=== PATIENT | female | born 1970 | race African-American/Black ===

== ENCOUNTER 2023-06-20 11:13 | Emergency (ER) | payer OTHER, SELFPAY ==
[2023-06-20 11:25] VITALS: BP 152/79; PULSE 76; RESP 18; TEMP 36.4; O2SAT 100; BMI 284.2
--- NOTE | 2023-06-20 11:35 | XR_ITS ---
The [address] [address] Patient Name: DANNY LOVETT MRN: [id number] date: 1970 Sex: F Assigned Patient Location: ER Current Patient Location: ER Accession/Order Number: [id number] Exam Date: 06/20/2023 12:00 Report Date: 06/20/2023 12:18 At the request of: CAMDEN CRABTREE Procedure: XR chest 2V EXAMINATION: XR chest 2V, 06/20/2023 12:00 PM EST HISTORY: sob COMPARISON: None. TECHNIQUE: 2 views of the chest performed. FINDINGS: Medical devices: None. Cardiomediastinal silhouette is within normal limits. Streaky bilateral lower lobe and lingular opacities about the bases, likely atelectasis/scarring. No large pleural effusion, or pneumothorax. No definite acute osseous abnormality. XR/XR chest 2V IMPRESSION: 1. Streaky bilateral lower lobe and lingular opacities about the bases, likely atelectasis/scarring Electronically authenticated by: AMBREEN ARANGO Date: 06/20/2023 12:18
[2023-06-20] MEDS: ONDANSETRON 4 MG RAPDIS TABLET SL (12:00)
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
== END 2023-06-20 13:31 | disposition home or self-care (01) ==
PROVIDERS: Emergency Provider Emergency Medicine
DX: T65.891A Toxic effect of other specified substances, accidental (unintentional), initial encounter (principal); J68.0 Bronchitis and pneumonitis due to chemicals, gases, fumes and vapors
CPT/HCPCS: 71046; 99283

== ENCOUNTER 2023-10-30 14:10 | Outpatient (OUT) | payer OTHER, SELFPAY ==
--- NOTE | 2023-10-30 14:22 | XR_ITS ---
The [address] [address] Patient Name: DANNY LOVETT MRN: [id number] date: 1970 Sex: F Assigned Patient Location: [facility] Current Patient Location: [facility] Accession/Order Number: [id number] Exam Date: 10/30/2023 14:40 Report Date: 10/30/2023 15:13 At the request of: NIKUNJ DURAN Procedure: XR wrist RT min 3V EXAM: XR wrist RT min 3V HISTORY: Right Hand Pain, Right Wrist Pain . Work-related injury. COMPARISON: None. TECHNIQUE: 3 views of the right wrist were obtained. FINDINGS: There is no evidence of an acute fracture or dislocation. Ulnar minus variance present. The joint spaces are intact throughout. No soft tissue abnormality is identified. XR/XR wrist RT min 3V IMPRESSION: No acute fracture or dislocation. The joint spaces are intact. Electronically authenticated by: IVONE JACQUES Date: 10/30/2023 15:13
--- NOTE | 2023-10-30 14:22 | XR_ITS ---
The [address] [address] Patient Name: DANNY LOVETT MRN: [id number] date: 1970 Sex: F Assigned Patient Location: [facility] Current Patient Location: [facility] Accession/Order Number: [id number] Exam Date: 10/30/2023 14:40 Report Date: 10/30/2023 15:16 At the request of: NIKUNJ DURAN Procedure: XR hand RT min 3V EXAM: XR hand RT min 3V HISTORY: Right Hand Pain, Right Wrist Pain COMPARISON: None. TECHNIQUE: 3 views the right hand were obtained. FINDINGS: There is no evidence of an acute fracture or dislocation. Small calcifications are seen associated with the interphalangeal joint of the thumb, the distal interphalangeal joint of the index finger and the distal interphalangeal joint of the fourth digit. The joint spaces are otherwise intact. No abnormality seen in the soft tissues. XR/XR hand RT min 3V IMPRESSION: No acute fracture or dislocation. Small calcifications are seen associated with a few interphalangeal joints, indicating early degenerative change. The joint spaces are otherwise intact. No radiopaque foreign body is identified. Electronically authenticated by: IVONE JACQUES Date: 10/30/2023 15:16
== END 2023-10-30 14:11 | disposition home or self-care (01) ==
LOC: RAD 14:15
PROVIDERS: Visit Provider Nurse Practitioner Family
DX: S69.91XA Unspecified injury of right wrist, hand and finger(s), initial encounter (principal)
CPT/HCPCS: 73110; 73130

== ENCOUNTER 2025-03-15 08:29 | Emergency (ER) | payer OTHER, SELFPAY ==
--- OUTSIDE RECORDS SUMMARY | 2025-03-07 16:30 | XMS_ITS | Encounter Summary ---
Author Organization [facility] Address [address] [id number] Care Team Providers Care Certified Nursing Assistant Name Role Phone Unallocated, Noms Provider Primary Care Provi ac Reason for Visit * ReasonCommentsFollow-upPf/achilles Encounter Details DateTypeDepartmentCare Team (Latest Contact Info)Ktsleiqlspm24/17/2025 4:30 PM ESTOffice Visit [facility] [address] [place] [phone] Jareth Salazar DPM [address] [phone] Left Achilles tendinitis (Primary Dx); Plantar fasciitis; Contracture of left ankle; Contracture of right ankle Social History Tobacco UseTypesPacks/DayYears UsedDateSmoking Tobacco: Every DayCigarettes Tobacco Cessation:Ready to Q uit: Not Asked; Counseling Given: Yes CommentsUnknownSex and Gender InformationValueDate RecordedSex Assigned at BirthNot on fileLegal IlaEfbfdb62/11/2024 10:43 AM ESTGender IdentityNot on fileSexual OrientationNot on filedocumented as of this encounter Last Filed Vital Signs Vital SignReadingTime TakenCommentsBlood Pressure--Pulse--Temperature-- Respiratory Jhbf941005/07/2024 4:29 PM ESTOxygen Saturation--Inhaled Oxygen Concentration--Fficnp92.5 kg (162 lb)03/07/2025 4:29 PM GKGOtzdhl701.4 cm (5') 03/07/2025 4:29 PM ESTBody Mass Index31.6403/07/2025 4:29 PM ESTdocumented in this encounter Progress Notes * Jareth Salazar DPM - 03/07/2025 4:30 PM EST Patient: Zoraida Owens : 1970 PCP: Noms Provider MD Thony SUBJECTIVE Pt presents today for follow up of left HSS. Pt has had previous treatment of 1st steroid injection, nsaids, stretching with relief in the past. Pt states current pain on a 1-10 scale is a 3 Pt presents to day for follow up tx. Patient has similar complaints to the right heel and rates it up to a 3 /10 Pt presents today for follow up of left achilles tendonitis . Pt has had previous treatment of medrol pack with positive improvement in the past. Pt states current pain on a 1-10 scale is a 1 Pt presents to day for follow up tx. Pt has been taking nsaids and using orthotics with positive improvement. Allergies: Allergies Allergen Reactions Ibuprofen GI intolerance Past Medical History: No past medical history on file. Medications: Current Outpatient Medications: methylPREDNISolone (Medrol Dospak) 4 MG tablets, Follow schedule on MEDROL PACK package instructions to be used as directed, Disp: 21 tablet, Rfl: 0 Social History: Social History Socioeconomic History Marital status: Unmarried Spouse name: Not on file Number of children: Not on file Years of education: Not on file Highest education level: Not on file Occupational History Not on file Tobacco Use Smoking status: Every Day Types: Cigarettes Smokeless tobacco: Not on file Substance and Sexual Activity Alcohol use: Not on file Drug use: Not on file Sexual activity: Not on file Other Topics Concern Not on file Social History Narrative Not on file Social Drivers of Health Financial Resource Strain: Not on file Food Insecurity: Not on file Transportation Needs: Not on file Physical Activity: Not on file Stress: Not on file Social Connections: Not on file Intimate Partner Violence: Not on file Housing Stability: Not on file ROS: Gastrointestinal: denies abdominal pain, ulcers, or changes in appetite or bowel habits Musculoskeletal: Positive generalized arthritis to joints and denies loss of strength. Cardiovascular: denies CP, palpitations, irregular rhythms OBJECTIVE LE EXAM: DERM: Positive hair growth to b/l feet with good skin turgor noted. Negative openings in skin VASC: Palpable pedal pulsed b/l with warm to cool tibia to toes b/l NEURO: Gross sensation intact digits 1-10 and b/l feet ORTHO: 20 degrees inversion and 10 degrees eversion STJ b/l. Ankle ROM less than 10 degrees b/l. minimal pain on palpation to left medial calcaneal tubercle diminished pain on palpation to right medial calcaneal tubercle minimal pain on palpation left Achilles tendon with negative palpable [place] XRAY: ASSESSMENT 1. Left Achilles tendinitis 2. Plantar fasciitis 3. Contracture of left ankle 4. Contracture of right ankle PLAN Prescription today for Mobic Patient is to continue with stretching excercizes daily with patient to continue with night stretching splint or manual stretching. Continue with orthotics Jareth Salazar DPM documented in this encounter Plan of Treatment DateTypeDepartmentCare Team (Latest Contact Info)Ylgjkoglhdl41/08/2025 4:30 PM ESTOffice Visit [facility] [address] [place] [phone] Jareth Salazar DPM [address] [address] documented as of this encounter Visit Diagnoses Diagnosis Left Achilles tendinitis- Primary Plantar fasciitis Plantar fascial fibromatosis Contracture of left ankle Contracture of right ankle documented in this encounter Care Teams Team MemberRelationshipSpecialtyStart DateEnd Date Unallocated, [facility] MD Dg [address] [place] [address] PCP - GeneralFamily Medicine05/01/23documented as of this encounter
[2025-03-15] VITALS (12 sets, daily range): BP systolic 127–158; BP diastolic 79–104; PULSE 48–56; TEMP 36.6; O2SAT 99–100; BMI 32.0
--- NOTE | 2025-03-15 08:52 | ECG_ITS ---
The [facility] Test Date: 2025-03-15 Pat Name: DANNY LOVETT Department: Room: - Gender: Female [employer]ite [employer]: : 1970 Requested By: Order Number: [id number] Reading MD: NURA ULLOA Measurements Intervals [place] Rate: 52 P: 76 RI: 126 QRS: 77 QRSD: 76 T: 49 QT: 426 QTc: 407 Interpretive Statements 1100 Sinus rhythm 4068 Nonspecific [place] abnormality 9130 borderline ECG No previous ECG available for comparison Electronically Signed On 03-15-2025 15:19:50 EST by NURA ULLOA
--- NOTE | 2025-03-15 08:53 | XR_ITS ---
The [address] [id number] Patient Name: DANNY LOVETT MRN: [id number] date: 1970 Sex: F Assigned Patient Location: ED.MAIN Current Patient Location: ED.MAIN Accession/Order Number: [id number] Exam Date: 03/15/2025 09:10 Report Date: 03/15/2025 09:26 At the request of: SABRINA ESPINOZA MD Procedure: XR chest 1V PORTABLE AP ERECT CHEST 0855 hours CLINICAL HISTORY: Chest pain and dizziness. History of tobacco use. COMPARISON: 06/20/2023 The heart is within normal limits. There is no vascular congestion. The lungs, as visualized, are clear. There is no effusion or pneumothorax. The osseous structures are intact. XR/XR chest 1V IMPRESSION: NO ACUTE FINDINGS Impression dictated by: Lizet Clark M.D. 03/15/2025 9:26 AM Dictation Location: [place] [address] Electronically authenticated by: [id number] Y Date: 03/15/2025 09:26
--- NOTE | 2025-03-15 08:53 | ED.GENADUL1 ---
HPI HPI - General Adult General Chief complaint: Chest Pain Stated complaint: CHEST PAIN Time Seen by Provider: 03/15/25 08:32 Source: patient Mode of arrival: ambulance Limitations: no limitations History of Present Illness HPI narrative: 54-year-old female presented to the emergency department for chest pain. It began about 6:15 this morning and is sharp and intermittent. Sometimes she feels dizzy. It started coming on more frequently and she came here to get checked. No trauma or fever or back pain. She does not complain to me of shortness of breath. No history of coronary artery disease. Related Data Previous Rx's ?Medication ?Instructions ?Recorded albuterol sulfate 90 mcg/actuation 2 inh inhalation Q6H PRN 06/20/23 aerosol inhaler bronchospasm #8.5 grams Allergies Allergy/AdvReac Type Severity Reaction Status Date / Time ibuprofen (From Motrin) Allergy Abdominal Verified 03/15/25 08:42 Pain Opioid HPI Opioid Management Most Recent Opioid Data: Last Pain Scale 3 Today, 08:36 Review of Systems ROS Narrative A ten point review of systems is negative except as noted above. PFSH PFSH Social History Smoking status: Current every day smoker Little interest or pleasure in doing things: not at all Feeling down, depressed, or hopeless: not at all Exam Narrative Exam Narrative: Nurses note and vital signs reviewed General:The patient appears well and in no apparent distress.Patient is resting comfortably on cart. Skin:Warm, dry, no pallor noted.There is no rash noted. Head:Normocephalic, atraumatic Eye: Normal conjunctiva, no drainage Ears, Nose, Mouth, and Throat: oral mucosa is moist. Nares patent. Cardiovascular:Regular Rate and Rhythm Respiratory:Patient is in no distress, no accessory muscle use, lungs are clear to auscultation, no wheezing, rales or rhonchi Back:non-tender GI:Normal bowel sounds, no tenderness to palpation, no masses appreciated.No rebound, guarding, or rigidity noted. Musculoskeletal: The patient has no evidence of calf tenderness, no pitting edema, symmetrical pulses noted bilaterally Neurological:A&O, normal speech Psychiatric:Cooperative Constitutional Vital Signs, click to edit/add: Last Vital Signs Temp 97.8 F 03/15/25 08:36 Pulse 52 L 03/15/25 10:00 Resp 16 03/15/25 10:00 BP 127/79 03/15/25 10:00 Pulse Ox 100 03/15/25 10:00 Course Vital Signs Vital signs: Vital Signs Temperature 97.8 F 03/15/25 08:36 Pulse Rate 53 L 03/15/25 08:36 Respiratory Rate 16 03/15/25 08:36 Blood Pressure 150/104 H 03/15/25 08:36 Pulse Oximetry 100 03/15/25 08:36 Temperature 97.8 F 03/15/25 08:36 Pulse Rate 52 L 03/15/25 10:00 Respiratory Rate 16 03/15/25 10:00 Blood Pressure 127/79 03/15/25 10:00 Pulse Oximetry 100 03/15/25 10:00 Medical Decision Making MDM Narrative Medical decision making narrative: Her workup including 2 sets of troponin is negative. She is able to be discharged home. She reports she has been under a lot of stress recently. She will follow-up with her doctor if symptoms persist. No evidence of acute coronary syndrome. Have no clinical suspicion of PE at this point. Treatment diagnosis and follow-up were discussed with the patient. Differential Diagnosis Differential Diagnosis: Myocardial infarction, anxiety, PE, pneumothorax, GERD Lab Data Lab results reviewed: Yes I reviewed the patient's lab results Labs: Lab Results 03/15/25 03/15/25 Range/Units 08:50 09:57 WBC 5.8 (4.0-11.0) 10^3/uL RBC 4.33 (4.20-5.40) 10^6/uL Hgb 13.6 (12.0-16.0) g/dL Hct 40.7 (36.0-48.0) % MCV 94.0 (81.0-99.0) fL MCH 31.4 (26.7-34.0) pg MCHC 33.4 (29.9-35.2) g/dL RDW 12.3 (11.0-15.0) % Plt Count 195 (150-450) 10^3/uL MPV 10.7 (9.5-13.5) fL Neut % (Auto) 60.6 (43.0-75.0) % Lymph % (Auto) 29.7 (20.5-60.0) % [place] % (Auto) 5.7 (1.7-12.0) % Eos % (Auto) 3.1 (0.9-7.0) % Baso % (Auto) 0.7 (0.2-2.0) % Neut # (Auto) 3.5 (1.4-6.5) 10^3/uL Lymph # (Auto) 1.7 (1.2-3.8) 10^3/uL [place] # (Auto) 0.3 (0.3-0.8) 10^3/uL Eos # (Auto) 0.2 (0.0-0.7) 10^3/uL Baso # (Auto) 0.0 (0.0-0.1) 10^3/uL Abs Immat Gran (auto) 0.01 (0.00-0.03) 10^3/uL Imm/Tot Granulo (auto) 0.2 (0.0-0.5) % D-Dimer 0.55 (<=0.59) mg/L FEU Sodium 144 (136-145) mmol/L Potassium 3.9 (3.5-5.1) mmol/L Chloride 108 H (98-107) mmol/L Carbon Dioxide 28.5 (21.0-32.0) mmol/L Anion Gap 11.4 BUN 15.0 (7.0-18.0) mg/dL Creatinine 0.89 (0.55-1.02) mg/dL Est GFR ( Amer) >60 (>=60 mL/min/1.73m^2) Est GFR (Non-Af Amer) >60 (>=60 mL/min/1.73m^2) BUN/Creatinine Ratio 16.9 Glucose 93 (74-106) mg/dL Calcium 8.8 (8.5-10.1) mg/dL Troponin I High Sens 15.4 15.1 (4.0-51.3) pg/mL Imaging Data Chest x-ray: Radiologist's impression: ITS Impressions Chest X-Ray 03/15/25 08:53 IMPRESSION: NO ACUTE FINDINGS Impression dictated by: Lizet Clark M.D. 03/15/2025 9:26 AM Dictation Location: [place] [address] Electronically authenticated by: [id number] Y Date: 03/15/2025 09:26 ECG Data Attestation: I personally reviewed and interpreted this ECG as follows: (EKG on my interpretation shows sinus rhythm with rate 52 and no acute changes.) Discharge Plan Discharge Chief Complaint: Chest Pain Clinical Impression: Chest pain Patient Disposition: Home, Self-Care Time of Disposition Decision: 10:32 Condition: Good Mode of Transportation: Private Vehicle Prescriptions / Home Meds: No Action albuterol sulfate 90 mcg/actuation HFA aerosol inhaler 2 inh inhalation Q6H PRN (Reason: bronchospasm) Qty: 8.5 0RF Print Language: Burmese Instructions: Chest Pain (ED) Referrals: Physician,Non-Staff, MD [Primary Care Provider] - 1 week
[2025-03-15 09:03] LABS: Hematocrit 40.7 % (36.0-48.0); Hemoglobin 13.6 g/dL (12.0-16.0); Immature Granulocytes Abs Auto 0.01 10^3/uL (0.00-0.03); Immature Granulocytes Pct Auto 0.2 % (0.0-0.5); Lymphocytes Absolute Auto 1.7 10^3/uL (1.2-3.8); Mean Corpuscular HGB Conc 33.4 g/dL (29.9-35.2); Mean Corpuscular Hemoglobin 31.4 pg (26.7-34.0); Mean Corpuscular Volume 94.0 fL (81.0-99.0); Platelet Count 195 10^3/uL (150-450); Red Blood Count 4.33 10^6/uL (4.20-5.40); White Blood Count 5.8 10^3/uL (4.0-11.0)
--- OUTSIDE RECORDS SUMMARY | 2025-03-15 09:12 | XMS_ITS | Clinical Summary ---
Author Organization [facility] Address [address] [id number] Care Team Providers Care Priming Mixture Carrier Name Role Phone Unallocated, [facility] Provi ac Allergies Active AllergyReactionsCriticalityNoted DateCommentsIbuprofenGI intolerance 01/10/2025 Medications MedicationSigDispense QuantityRefillsLast FilledStart DateEnd DateStatus methylPREDNISolone (Medrol Dospak) 4 MG tablets Indications:Left Achilles tendinitisFollow schedule on MEDROL PACK package instructions to be used as directed 21 tablet 5Active meloxicam (Mobic) 15 MG tablet Indications:Plantar fasciitisTake 1 tablet (15 mg) by mouth Daily 30 tablet 5Active Active Problems No known active problems Encounters DateTypeDepartmentCare IxslKiidjizupwf04/17/2025 4:30 PM ESTOffice Visit [facility] [address] [place] [phone] Jareth Salazar DPM Left Achilles tendinitis (Primary Dx); Plantar fasciitis; Contracture of left ankle; Contracture of right ankle03/07/2025amboo flowsheet [facility] [address] [place] [phone] Jareth Salazar DPM 02/11/2025 9:30 AM EDTOffice Visit [facility] [address] [place] [phone] Jareth Salazar DPM Left Achilles tendinitis (Primary Dx); Plantar fasciitis; Contracture of left ankle; Contracture of right ankle02/11/2025bstract [facility] [address] [place] [address] Jareth Salazar DPM 02/11/2025amboo flowsheet [facility] [address] [place] [phone] Jareth Salazar DPM 02/04/2025Telephone [facility] [address] [place] [phone] Jareth Salazar DPM 01/24/2025 11:10 AM EDTClinical Support [facility] [address] [place] [phone] Jareth Salazar DPM Left Achilles tendinitis (Primary Dx); Plantar fasciitis; Contracture of left ankle; Contracture of right ankle01/24/2025amboo flowsheet [facility] [address] [place] [phone] Jareth Salazar DPM 01/10/2025 4:00 PM EDTOffice Visit [facility] [address] [place] [phone] Jareth Salazar DPM Left Achilles tendinitis (Primary Dx); Heel spur, left; Plantar fasciitis; Contracture of left ankle; Contracture of right ankle01/10/2025amb flowsheet [facility] [address] [place] [phone] Jareth Salazar DPM from Last 3 Months Family History RelationNameStatusCommentsFatherDeceasedMotherAlive Social History Tobacco UseTypesPacks/DayYears UsedDateSmoking Tobacco: Every DayCigarettes Tobacco Cessation:Ready to Q uit: Not Asked; Counseling Given: Yes CommentsUnknownSex and Gender InformationValueDate RecordedSex Assigned at BirthNot on fileLegal CxfDmypdp84/11/2024 10:43 AM ESTGender IdentityNot on fileSexual OrientationNot on file Last Filed Vital Signs Vital SignReadingTime TakenCommentsBlood Pressure--Pulse--Temperature-- Respiratory Xspj188605/07/2024 4:29 PM ESTOxygen Saturation--Inhaled Oxygen Concentration--Jscqig94.5 kg (162 lb)03/07/2025 4:29 PM DKOGgjwoq931.4 cm (5') 03/07/2025 4:29 PM ESTBody Mass Index31.6403/07/2025 4:29 PM EST Plan of Treatment DateTypeDepartmentCare Team (Latest Contact Info)Rfgvngggwmg28/08/2025 4:30 PM ESTOffice Visit [facility] [address] [place] [phone] Jareth Salazar DPM [address] [address] Health MaintenanceDue DateLast DoneCommentsCT Jhkumywhtldo64/23/1972Colonoscopy 1971Colorectal Cancer Nldumesby08/23/1972FIT-DNA1971FIT1971 FOBT1971 6524Sccxjpbklvmsz87/23/1972Pneumococcal Vaccine: Pediatrics (0 to 5 Years) and At-Risk Patients (6 to 64 Years) (1 of 2 - PCV)12/11/1990Pap Smear 12/11/1992Cervical Cancer Rmtublkqm62/23/2002HPV/Znxdbr5412/11/2001Mammogram 2011COVID-19 Vaccine ( - 2024- season)2024Influenza Vaccine (#1) 2024 Insurance Care Teams Team MemberRelationshipSpecialtyStart DateEnd Date Unallocated, [facility], [address] [place] [address] PCP - GeneralFamily Medicine05/01/23
--- OUTSIDE RECORDS SUMMARY | 2025-03-15 09:12 | XMS_ITS | CCD ---
Author Organization [facility] Care Team Providers Care Outdoor Adventure Instructor Name Role Phone [facility], Services Primary Care Provider [phone]( [phone] DO Lucio Truong Emergency Provider [phone] DO Juni Bell Emergency Provider Family [facility], Services Primary Care Provider MD Jackson Alexandre Emergency Provider Naveed [facility] Lolis Brewster Emergency Provider [facility], Services Primary Care Provider MD Jackson Alexandre Emergency Provider MD Quentin Dickinson Emergency Provider [facility], Services Primary Care Provider DO Aurelio Jimenez Emergency Provider UnaCELESTE [place] Emergency Provider [facility], Services Primary Care Provider MD Felipe Gray Attending Provider [facility] Primary Care Provider Charles Thorne PA-C Emergency Provider [facility], Services Primary Care Unavaila Felipe Ruff Attending Unavailable Felipe Gray Admitting Unavailable Quentin Dickinson Attending Unavailable Quentin Dickinson Admitting Unavailable [facility] Primary Care Unavaila ble [facility] Primary Care Unavaila Charles Sampson Attending Unavailable Charles Thorne Admitting Unavailable [facility] Primary Care Unavaila Sandra Mello Attending Unavailable Sandra Nina Admitting Unavailable [facility] Services Primary Care Unavaila ble Aurelio Jimenez Attending Unavailable Aureilo Jimenez Admitting Unavailable Unallocated , [place] Provider Primary Care Provi ac JARETH SALAZAR Attending Unavailable JARETH SALAZAR Attending Unavailable JARETH SALAZAR Attending Unavailable Allergies Allergy ClassificationReported Allergen(s)Allergy TypeDate of OnsetReaction(s) Facility (11 sources)Ibuprofen; Translations: [ibuprofen]Drug Trzoctv20-63-0008WZ [facility] Medications Current Medications MedicationDrug Class(es)DatesSig (Normalized)Sig (Original)lidocaine 0.05 mg/mg medicated patch (10 sources)Antiarrhythmic, Amide Local AnestheticStart: 05-47-5195zblij 1 dose topically every twenty-four hoursLidocaine 5 % adhesive patch,medicated Active 1 PATCH TOPICAL Q24H July 13, 2024 12:00am leave on most painful area for up to 12 hrsStart: 03-21-2020 End: 46-72-4613iwmgd 1 dose topically once dailyLidocaine 5 % adhesive patch,medicated Discontinued 1 PATCH TOPICAL Daily March 21, 2020 1:00am May 22, 2020 6:52pm leave on most painful area for up to 12 hrs methocarbamol 750 mg oral tablet (1 source)Muscle RelaxantStart: 80-38-6487mjml 1 tablet by mouth three times dailyMethocarbamol 750 mg tablet Active 750 MG PO Three times daily July 13, 2024 12:00ammethylPREDNISolone (7 sources)CorticosteroidStart: 09-25-0973dnziodMDGGSVCfweok (Medrol Dospak) 4 MG tablets Indications: Left Achilles tendinitis Follow schedule on MEDROL PACK package instructions to be used as directed 21 tablet 01/10/2025 Activenaproxen 500 mg oral tablet (20 sources)Nonsteroidal Anti-inflammatory DrugStart: 48-96-1678ekzv 1 tablet by mouth twice daily as needed for painNaproxen (Naprosyn) 500 mg tablet Active 500 MG PO Twice daily as needed for pain July 13, 2024 12:00amStart: 05-04-2017 End: 97-02-2938ifou 1 tablet by mouth twice daily as needed for painNaproxen (Naprosyn) 500 mg tablet Discontinued 500 MG PO Twice daily as needed for pain May 04, 2017 1:00am April 06, 2018 3:40pm administer with food or milkStart: 01-28-2017 End: 56-84-0470Gywqiuar Sodium 550 mg Tablet Discontinued 550 MG PO EVERY 8-12 HOURS as needed for Pain January 28, 2017 12:00am May 04, 2017 12:59pmNo Name (No Known Home Meds) (1 source)Start: 96-03-5108Hx Name (No Known Home Meds) Active September 12, 2023 12:00amondansetron 4 mg disintegrating oral tablet (20 sources)Serotonin-3 Receptor AntagonistStart: 49-95-9174Zgskxlhvisb 4 mg tablet,disintegrating Active 4 MG PO every 6 to 8 hours as needed for Nausea September 12, 2023 12:00amStart: 06-17-2021 End: 87-07-4546yafg 1 tablet by mouth twice daily as needed for nausea and vomitingOndansetron Hcl 4 mg tablet Discontinued 4 MG PO Twice daily as needed for nausea and vomiting 8 June 17, 2021 1:00am February 02, 2023 4:36pm Start: 07-23-2017 End: 49-87-7150pkzu 1 tablet by mouth every four hours for nauseaOndansetron (Zofran Odt) 4 mg Tablet,Disintegrating Discontinued 4 MG PO Q4H as needed for Nausea July 23, 2017 12:00am April 06, 2018 3:40pm administer first dose 30 minutes before start of emetogenic chemotherapy Completed/Discontinued Medications MedicationDrug Class(es)DatesSig (Normalized)Sig (Original)amoxicillin 500 mg oral tablet (9 sources)Penicillin-class AntibacterialStart: 07-28-2022 End: 34-74-0008nimb 1 tablet by mouth three times dailyAmoxicillin 500 mg tablet Discontinued 500 MG PO Three times daily July 28, 2022 12:00am February 02, 2023 4:36pmazithromycin 250 mg oral tablet (9 sources)Macrolide AntimicrobialStart: 04-27-2020 End: 17-04-3941zqgo 2-5 tablets by mouth once dailyAzithromycin (Zithromax Z- Sharif) 250 mg Tablet Discontinued 1 dose pk PO as directed on dose pack April 27, 2020 1:00am May 22, 2020 6:52pm take 500 mg today (day 1), then 250 mg for 4 days (days 2-5)clindamycin 300 mg oral capsule (9 sources)Lincosamide AntibacterialStart: 01-28-2017 End: 34-86-3896iwsf 1 capsule by mouth every eight hoursClindamycin Hcl 300 mg capsule Discontinued 300 MG PO Q8H 30 January 28, 2017 12:00am January 192016 12:00am February 07, 2017 12:03amcyclobenzaprine hydrochloride 10 mg oral tablet (9 sources)Muscle RelaxantStart: 05-04-2017 End: 77-86-1789rfpr 1 tablet by mouth every eight hours as needed for muscle spasmsCyclobenzaprine 10 mg tablet Discontinued 10 MG PO Q8H as needed for muscle spasm May 04, 2017 3:11pm July 23, 2017 10:21amdexamethasone 6 mg oral tablet (9 sources)CorticosteroidStart: 04-27-2020 End: 22-29-2135gxvs 1 tablet by mouth once dailyDexamethasone (Decadron) 6 mg tablet Discontinued 6 MG PO Daily April 27, 2020 1:00am 2020 6:52pmdextromethorphan hydrobromide 15 mg / guaiFENesin 400 mg / pseudoephedrine hydrochloride 60 mg oraltablet (16 sources)alpha-Adrenergic Agonist, Uncompetitive O-zylbag-B-aspartate Receptor Antagonist, Sigma-1 AgonistStart: 03-17-2023 End: 00-58-3571eouh 1 tablet by mouth every six hours as needed Suhgrkurzltthst-Kl-Rfhksbjklxx (Capmist Dm) 60-15-400 mg tablet Discontinued 1 TAB PO Q6H as neededfor cold symptoms March 17, 2023 1:00am September 12, 2023 7:22amStart: 07-19-2019 End: 91-73-1732qfkd 1 tablet by mouth every six hours as needed Wlephxbrmjfmecw-Pt-Wivbgjiokie (Capmist Dm) 60-15-400 mg tablet Discontinued 1 TAB PO Q6H as neededfor cold symptoms 03 23July 19, 2019 12:00am March 21, 2020 8:58pmdoxycycline hyclate 100 mg oral capsule (5 sources)Tetracycline-class DrugStart: 10-09-2023 End: 06-95-7725juff 1 capsule by mouth twice dailyDoxycycline Hyclate 100 mg capsule Discontinued 100 MG PO Twice daily 01 11October 09, 2023 12:00am December 15, 2023 11:51ammeclizine hydrochloride 25 mg oral tablet (9 sources)AntiemeticStart: 06-17-2021 End: 90-02-6473sfip 1 tablet by mouth three times daily as neededMeclizine 25 mg tablet Discontinued 25 MG PO Three times daily as needed for Vertigo June 17, 2021 1:00am February 02, 2023 4:36pmoseltamivir 75 mg oral capsule (7 sources)Neuraminidase InhibitorStart: 03-17-2023 End: 50-22-8359doaa 1 capsule by mouth twice dailyOseltamivir (Tamiflu) 75 mg capsule Discontinued 75 MG PO Twice daily 10 March 17, 2023 1:00am September 12, 2023 7:22ampenicillin v potassium 500 mg oral tablet (9 sources)Start: 01-28-2017 End: 21-96-2697jvmm 1 tablet by mouth twice dailyPenicillin V Potassium 500 mg Tablet Discontinued 500 MG PO Twice daily January 28, 2017 12:00am May 04, 2017 12:58pmtraMADol hydrochloride 50 mg oral tablet (9 sources)Opioid AgonistStart: 01-28-2017 End: 43-50-9227tuca 1 tablet by mouth every six hours as needed for painTramadol 50 mg tablet Discontinued 50 MG PO Q6H as needed for pain January 28, 2017 12:00am May 04, 2017 12:58pmvitamin b12 1 mg/ml injectable solution (9 sources)Vitamin W35Neslm: 01-28-2017 End: 35-99-5328kyshii 1 mL by intramuscular injection every monthCyanocobalamin (Vitamin B-12) 1,000 mcg/mL solution Discontinued 1 ML IM every month January 28, 2017 12:00am February 02, 2023 4:36pm patient reports has no taking in a while Problems Active Problems Problem ClassificationProblemDateDocumented DateEpisodic/ChronicAbdominal pain (6 sources)Abdominal pain; Translations: [Unspecified abdominal pain]09-12-2023 EpisodicConditions associated with dizziness or vertigo (9 sources)Dizziness; Translations: [Dizziness and giddiness]60-03-8734Clxggiue Disorders of teeth and jaw (9 sources)Dental abscess; Translations: [Periapical abscess without sinus] 16-27-0702NytxorsfGhwxu and electrolyte disorders (9 sources)Dehydration; Translations: [Dehydration]00-85-2281HgfeabsiUcgurxfg; including migraine (9 sources)Tension-type headache; Translations: [Tension-type headache, unspecified, not intractable]90-13-6450XdsjivfMmjkrwcm; including migraine (6 sources)Headache; Translations: [Headache]75-91-4254IopkwsmcKkwqdiqk; including migraine (1 source)Headache; including migraine; Translations: [Headache, unspecified] Onset: 80-62-1791Lqtxedahn (7 sources)Influenza due to Influenza A virus; Translations: [Influenza due to other identified influenza virus with other respiratory manifestations] 54-86-5206OauwufmvBtyqcy and vomiting (6 sources)Nausea and vomiting; Translations: [Nausea with vomiting, unspecified]93-74-6616XkgglvqlStmprquoqbl chest pain (16 sources)Atypical chest pain; Translations: [Other chest pain]04-03-2020 EpisodicOther acquired deformities (5 sources)Contracture of joint of left ankle; Translations: [Contracture, left ankle]07-69-7676ZhsmvteDuvyq acquired deformities (5 sources)Contracture of joint of right ankle; Translations: [Contracture, right ankle]61-79-0136FpthxvjWjjli circulatory disease (8 sources)Feeling of lump in throat; Translations: [Other specified symptoms and signs involving the circulatory and respiratory systems]99-79-6484Xcjuqgja Other connective tissue disease (9 sources)Pain in lower limb; Translations: [Pain in leg, unspecified] 44-57-9692PiwylglkVaqql connective tissue disease (5 sources)Left achilles tendonitis; Translations: [Achilles tendinitis, left leg]88-30-4246HnxehxfzXmckh connective tissue disease (2 sources)Calcaneal spur of left foot; Translations: [Calcaneal spur, left foot]89-33-0991BdakyuvpIujgj connective tissue disease (5 sources)Plantar fasciitis; Translations: [Plantar fascial fibromatosis] 67-44-7949LkctamhwTtrat female genital disorders (5 sources)Vaginal discharge; Translations: [Other specified noninflammatory disorders of vagina]50-25-5744VceslxftQoyji female genital disorders (1 source)Vaginal discomfort; Translations: [Unspecified condition associated with female genital organs and menstrual cycle]54-59-4980WkenpmafEfhhf injuries and conditions due to external causes (4 sources)Abrasion and/or friction burn of multiple sites; Translations: [Unspecified multiple injuries, initial encounter]50-45-0732JkmyihbkRolaa injuries and conditions due to external causes (3 sources)Injury of left ankle; Translations: [Unspecified injury of left ankle, initial encounter]58-73-6465BlmosfbdTworg lower respiratory disease (9 sources)Cough; Translations: [Cough]44-78-4852ZilgdbqsOffbu upper respiratory infections (9 sources)Upper respiratory infection; Translations: [Acute upper respiratory infection, unspecified]43-21-7024GurtomvpFpfqfl media and related conditions (9 sources)Otitis media; Translations: [Otitis media, unspecified, unspecified ear]00-81-6535BsarvlxiVoorehcbr by nonmedicinal substances (6 sources)Toxic effect of unspecified gases, fumes and vapors, accidental (unintentional), initial encounter;Translations: [Inhalation of gaseous substance]27-79-4341GjrgekxgTgubcaorano; intervertebral disc disorders; other back problems (9 sources)Sciatica; Translations: [Sciatica, unspecified side]03-21-2020 EpisodicSprains and strains (20 sources)Low back strain; Translations: [Strain of muscle, fascia and tendon of lower back, initial encounter]Onset: 114965-53-6141PweuowccOloniohvjrk injury; contusion (4 sources)Contusion of left lower leg, initial encounter; Translations: [Contusion of left lower extremity]54-46-9267LmdeihweLuzkj infection (18 sources)Disease caused by 2019-nCoV; Translations: [COVID-19]04-27-2020 Episodic Past or Other Problems Problem ClassificationProblemDateDocumented DateEpisodic/ChronicOther connective tissue disease (1 source)Pain in left lower leg; Translations: [Pain in left lower leg]Onset: 60-85-3223TwhwexkpFqpab female genital disorders (1 source)Other specified noninflammatory disorders of vagina; Translations: [Other specified noninflammatorydisorders of vagina]Onset: 73-18-5012Eryhvwjt Other injuries and conditions due to external causes (1 source)Unspecified injury of left ankle, initial encounter; Translations: [Unspecified injury of left ankle, initial encounter]Onset: 69-13-0283Pjzikcav Results Test NameValueInterpretationReference RangeFacilityChlamydia/GC Amplificationon 46-92-2745Pqgljeoqe Trachomotis, NAANegativeNormalNegativeThe [facility] Physician GroupComment on above:Order Comment: SOURCE OF SPECIMEN: cervical Performed By: #### GCCHLAMAMP #### [facility] ,Neisseria Gonorrhoeae, NAANegativeNormalNegativeThe [facility] Comment on above:Order Comment: SOURCE OF SPECIMEN: cervicalResult Comment: Performed at: =[facility] [id number] Plasterer Spray Gun: Brandi Thompson MD, Phone: [phone] PERFORMED BY: [address] [place] [address] PATHOLOGIST RANCH COOK CHRISTOPHER CONNER M.D.Performed By: #### GCCHLAMAMP #### [facility] ,Fungal Smearon 30-60-8251Yqyltm SmearFungus Smear Results No Yeast Like Elements Seen No Fungal Like Elements Seen Trichomonas Screen No Trichomonas Seen Trich Reference Reference range = None Seen PERFORMED BY: [address] [address] PATHOLOGIST RANCH COOK CHRISTOPHER CONNER M.D.[facility] Physician GroupComment on above: Performed By: #### FS, CUGEN ####[facility] [address] [place] [id number] USAFungal smearOrdered By: Charles Thorne on 07-13-2024 Fungus identified Fungus stain Nom (Unsp spec)Fungal smearMemorial Health System Selby General HospitalGenital Cultureon 46-36-9688Ojrdwps CultureNo More GC Specimen not tested for Neisseria gonorrheae ORGANISM: Strep agalactiae - (group b) (O:STRAGA) Quantity of Growth Heavy Growth PERFORMED BY: [facility] [address] [place] [address] PATHOLOGIST RANCH COOK CHRISTOPHER CONNER M.D.[facility] Physician GroupComment on above: Performed By: #### FS, CUGEN ####[facility] [address] [place] [address] USATrichomonas vaginalis detection by wet preparation Ordered By: Charles Thorne on 07-13-2024T. vaginalis Wet prep Ql (Unsp spec) Trichomonas vaginalis detection by wet preparationMemorial Health System Selby General HospitalX-ray reportOrdered By: Arash Daniel on 34-04-2403Ibron reportMARTINS FERRY [facility] [place] [address] [place] [address] XRay Report Signed Patient: Zoraida Owens MR#: [id number] : 1970 Acct:[id number] Age/Sex: 53 / F ADM Date: 5 Loc: ER Room: Type: [facility] ER Attending Dr: Copies to: Charles Thorne PA-C~ Ordering Provider: Charles Thorne PA-C Date of Service: 07/13/24 XR/XR shoulder RT min 2V*: Urogenital RIGHT SHOULDER - - 3 views CLINICAL HISTORY: Right shoulder pain for 2 weeks. No known injury. COMPARISON: None FINDINGS: Mild degenerative changes of the glenohumeral joint without acute bony process. XR/XR shoulder RT min 2V* IMPRESSION: MILD DEGENERATIVE CHANGES WITHOUT ACUTE BONY PROCESS. Impression dictated by: Arash Daniel Jr., D.O.07/13/2024 8:54 PM Dictation Location: RADIO-PC-18 Transcribed By: LUCAS 07/13/242053 Dictated By: Arash Daniel Jr, DO 07/13/242052 Signed By: 07/13/242053 [facility] HospitalXR shoulder RT min 2V*on 75-69-7629DS shoulder RT min 2V*[facility] [place] [address] [place] [address] XRay Report Signed Patient: Zoraida Owens MR#: [id number] : 1970 Acct:[id number] Age/Sex: 53 / F ADM Date: 07/13/24 Loc: ER Room: Type: [facility] ER Attending Dr: Copies to: Charles Thorne PA-C Ordering Provider: Charles Thorne PA-C Date of Service: 07/13/24 XR/XR shoulder RT min 2V*: Urogenital RIGHT SHOULDER - - 3 views CLINICAL HISTORY: Right shoulder pain for 2 weeks. No known injury. COMPARISON: None FINDINGS: Mild degenerative changes of the glenohumeral joint without acute bony process. XR/XR shoulder RT min 2V* IMPRESSION: MILD DEGENERATIVE CHANGES WITHOUT ACUTE BONY PROCESS. Impression dictated by: Arash Daniel Jr., D.O.07/13/2024 8:54 PM Dictation Location: RADIO-PC-18 Transcribed By: LUCAS 07/13/242053 Dictated By: Arash Daniel Jr, DO 07/13/242052 Signed By: 07/13/242053[facility] Physician GroupXR ankle LT min 3V*on 12-15-2023 XR ankle LT min 3V*[facility] [place] [facility] [address] [place] [address] XRay Report Signed Patient: Zoraida Owens MR#: [id number] : 1970 Acct:[id number] Age/Sex: 53 / F ADM Date: 12/15/23 Loc: SOXD Room: Type: [facility] CLI Attending Dr: Felipe Gray MD Copies to: Felipe Gray MD Ordering Provider: Felipe Gray MD Date of Service: 12/15/23 XR/XR ankle LT min 3V*: S99.912A - Unspecified injury of left ankle, initial enco... LEFT ANKLE - 3 views CLINICAL HISTORY: Left ankle injury on 12/02/2023. Generalized pain COMPARISON: None FINDINGS: Mild soft tissue swelling. Ankle mortise appears intact without acute bony process. XR/XR ankle LT min 3V* IMPRESSION: MILD SOFT TISSUE SWELLING WITHOUT ACUTE BONY PROCESS. Impression dictated by: Arash Daniel Jr., D.O.12/15/2023 3:27 PM Dictation Location: [place] [address] Transcribed By: [facility] 12/15/23 1527 Dictated By: Arash Daniel Jr, DO 12/15/23 1526 Signed By: 12/15/23 1527[facility] Physician GroupXR tibia fibula LT 2V*on 35-22-4567BS tibia fibula LT 2V*[facility] [place] [address] [place] [address] XRay Report Signed Patient: Zoraida Owens MR#: [id number] : 1970 Acct:[id number] Age/Sex: 52 / F ADM Date: 12/02/23 Loc: ER Room: Type: [facility] ER Attending Dr: Copies to: Sandra Nina APRN Ordering Provider: Sandra Nina APRN Date of Service: 12/02/23 XR/XR tibia fibula LT 2V*: Fall LEFT TIBIA AND FIBULA - 2 views CLINICAL HISTORY: Pain at the left lower leg after falling down stairs. COMPARISON: None AP and lateral views of the left tibia and fibula were obtained. There is no evidence of fracture, dislocation or bony destruction. Minor marginal spurring is present at the medial tibiofemoral compartment. There is a tiny enthesophyte at the insertion of the Achilles tendon. There are no focal soft tissue abnormalities. XR/XR tibia fibula LT 2V* IMPRESSION: NO ACUTE BONY FINDINGS. Impression dictated by: Lizet Clark M.D.12/03/2023 7:37 AM Dictation Location: [place] [address] Transcribed By: [facility] 12/03/2337 Dictated By: Lizet Clark MD 12/03/2335 Signed By: 12/03/2337[facility] Physician GroupBacteria [Presence] in Urine by AutomatedOrdered By: Aurelio Jimenez on 17-52-3515Cyzzbpsb Auto Ql (U)Rare [HPF]None SeenMemorial Health System Selby General HospitalBilirubin Test strip Ql (U) Ordered By: Aurelio Jimenez on 39-35-8121Zhjesxhfh Ql (U)NegativeNegative [facility] HospitalChlamydia trachomatis DNA [Presence] in Specimen by PEDRO with probe detectionOrdered By: Aurelio Jimenez on 10-09-2023. trachomatis DNA PEDRO+probe Ql (Unsp spec)NegativeNegativeMemorial Health System Selby General HospitalChlamydia/GC/Trich NAAon 60-39-5223Phbvyddzs Trachomotis, PEDRO NegativeNormalNegativeThe [facility] Physician GroupComment on above:Performed By: #### GCCHLAMTRI ####[facility] ,Neisseria Gonorrhoeae, NAANegative NormalNegativeThe [facility] Physician GroupComment on above:Performed By: #### GCCHLAMTRI ####[facility] ,Trichomonas NAAPositiveCritically abnormal NegativeThe [facility] Physician GroupComment on above:Result Comment: Performed at: =[facility] [id number] Plasterer Spray Gun: Brandi Thomspon MD, Phone: [phone] PERFORMED BY: [facility] [address] [place] [address] PATHOLOGIST RANCH COOK LUCÍA CARRASCO M.D.Performed By: #### GCCHLAMTRI ####[facility] ,Color of Urine by AutoOrdered By: Aurelio Jimenez on 45-01-5006Xxspp (U)YellowNormal YellowMemorial Health System Selby General HospitalComment on above:Order Comment: Name Collection Type:: Clean-Voided MidstreamPerformed By: #### CLEOONGLADIS UHCG ####[address] [place] [address] [place] Dipstick and Microscopicon 10-34-9244Ipdairit,UrineRareNormalNone SeenHca [facility] Hospital Physician GroupComment on above:Order Comment: Name Collection Type:: Clean-Voided MidstreamPerformed By: #### TOMY UHCG ####[address] [place] [address] USABilirubin,Urine NegativeNormalNegativeHca [facility] Hospital Physician GroupComment on above:Order Comment: Name Collection Type:: Clean-Voided MidstreamPerformed By: #### TOMY UHCG ####[address] [address] USAGlucose Ql (U)NormalNormalNormHalifax Health [facility] Physician GroupComment on above:Order Comment: Name Collection Type:: Clean-Voided MidstreamPerformed By: #### TOMY UHCG ####[address] [place] [address] USAHyaline Casts,UrineNoneNormal0-8The [facility] Physician GroupComment on above:Order Comment: Name Collection Type:: Clean- Voided MidstreamPerformed By: #### TOMY UHCG ####[address] [place] [address] USAMucus,UrineRareNormalHca [facility] Hospital Physician GroupComment on above:Order Comment: Name Collection Type:: Clean-Voided MidstreamPerformed By: #### CLEOONGLADIS UHCG ####[address] [place] [address] USANitrite,UrineNegative NormalNegativeHca [facility] Hospital Physician GroupComment on above:Order Comment: Name Collection Type:: Clean-Voided MidstreamPerformed By: #### CLEOONGLADIS UHCG ####[address] [place] [address] USAOccult Blood,UrineTraceHighNegativeHca [facility] Physician GroupComment on above:Order Comment: Name Collection Type:: Clean-Voided MidstreamPerformed By: #### TOMY UHCG ####[address] [address] USAProtein,UrineNegativeNormalNegativeThe [facility] Comment on above:Order Comment: Name Collection Type:: Clean-Voided Midstream Performed By: #### TOMY UHCG ####[address] [address] USARBC,Fsnjq7-2Vucixc7-9Snv [facility] Physician GroupComment on above:Order Comment: Name Collection Type:: Clean-Voided MidstreamPerformed By: #### TOMY UHCG ####[address] [address] USASpecificy [place],Urine1.030Normal 1.001-1.030The [facility] Physician GroupComment on above:Order Comment: Name Collection Type:: Clean-Voided MidstreamPerformed By: #### TOMY UHCG ####[address] [address] [place] Squamous Epithelial Cell,Lhlex4-9Xacp3-9Nby [facility] Physician GroupComment on above:Order Comment: Name Collection Type:: Clean-Voided MidstreamPerformed By: #### TOMY UHCG ####[address] [address] USAUrobilinogen,Urine2 mg/dLHighNormalThe [facility] Physician GroupComment on above:Order Comment: Name Collection Type:: Clean- Voided MidstreamPerformed By: #### TOMY UHCG ####[address] [address] USAWBC,Hepoa6-7Uixrth5-9Hbt [facility] Physician GroupComment on above:Order Comment: Name Collection Type:: Clean-Voided MidstreamPerformed By: #### TOMY UHCG ####[address] [address] USAEpithelial cells.squamous [#/area] in Urine sediment by Automated countOrdered By: Aurelio Jimenez on 22-98-8162Vljsfnavze cells.squamous Auto (Urine sed) [#/Area]5-9 [HPF]High0-2FRiverside Methodist HospitalErythrocytes [#/area] in Urine sediment by Automated countOrdered By: Aurelio Jimenez on 32-80-7865FIJ Auto (Urine sed) [#/Area]3-4 [HPF]0-4FRiverside Methodist HospitalGlucose [Mass/volume] in Urine by Test stripOrdered By: Aurelio Jimenez on 10-09-2023 Glucose Test strip (U) [Mass/Vol]Normal mg/dLNormClinton Memorial HospitalHCG ( test) IA.rapid Ql (U)Ordered By: Aurelio Jimenez on 20-23-3869MNP ( test) Ql (U)NegativeMemorial Health System [facility]by [facility] HCG,Urineon 24-08-2340Nmvx HCG ( test) Ql (U)NegativeNoPsychiatric hospital Physician GroupComment on above:Order Comment: Name Collection Type:: Clean-Voided MidstreamResult Comment: PERFORMED BY: [facility] [address] [place] [id number] PATHOLOGIST RANCH COOK LUCÍA CARRASCO M.D.Performed By: #### ADDDEREKUAPLUS, [facility] ####[facility] [place] [address] USAHemoglobin Test strip Ql (U) Ordered By: Aurelio Jimenez on 68-95-7574Whhtmtzygg Ql (U)TraceHighNegative [facility] HospitalHyaline casts [#/area] in Urine sediment by Automated countOrdered By: Aurelio Jimenez on 80-39-4282Phgirtz casts Auto (Urine sed) [#/Area]None [LPF]0-8[facility] HospitalKetones [Presence] in Urine by Test stripOrdered By: Aurelio Jimenez on 10-09-2023 Ketones Ql (U)NegativeNormalNegSalem Regional Medical CenterComment on above:Order Comment: Name Collection Type:: Clean-Voided MidstreamPerformed By: #### TOMY [facility] ####[facility] [place] [address] USALeukocyte esterase [Presence] in Urine by Test strip Ordered By: Aurelio Jimenez on 73-67-3622Wbonoqkto esterase Test strip Ql (U)4+ HighNegativeMemorial Health System Selby General HospitalComment on above:Order Comment: Name Collection Type:: Clean-Voided MidstreamPerformed By: #### TOMY, [facility] ####[facility] [place] [address] [place] Leukocytes [#/area] in Urine sediment by Automated countOrdered By: Aurelio Jimenez on 29-52-6678GHG Auto (Urine sed) [#/Area]3-4 [HPF]0-4FRiverside Methodist HospitalMucus [Presence] in Urine by AutomatedOrdered By: Aurelio Jimenez on 93-23-2921Djydu Auto Ql (U)Rare [LPF][facility] HospitalNeisseria gonorrhoeae DNA [Presence] in Specimen by PEDRO with probe detectionOrdered By: Aurelio Jimenez on 10-09-2023N. gonorrhoeae DNA PEDRO+probe Ql (Unsp spec)NegativeNegativeMemorial Health System Selby General HospitalNitrite Test strip Ql (U)Ordered By: Aurelio Jimenez on 58-63-9934Cznfpej Ql (U)Negative NegativeMemorial Health System Selby General HospitalProtein Test strip (U) [Mass/Vol] Ordered By: Aurelio Jimenez on 66-20-0648Mhitkgm (U) [Mass/Vol]NegativeNegative [facility] Medical Centerpecific gravity Test strip (U) [Rel density] Ordered By: Aurelio Jimenez on 14-09-5388Rduggwsz gravity (U) [Rel density] 1.0301.001-1.030[facility] HospitalTrichomonas vaginalis DNA [Presence] in Specimen by PEDRO with probe detectionOrdered By: Aurelio Jimenez on 10-09-2023T. vaginalis DNA PEDRO+probe Ql (Unsp spec)PositiveAbnormalNegative [facility] HospitalComment on above:Performed at: =[address] [id number] Director: Brandi Thompson MD, Phone: [phone] appearanceOrdered By: Aurelio Jimenez on 10-09-2023 Appearance (U)ClearSaint Mary'S Hospital Of Blue SpringsalCMercy Health Lorain HospitalComment on above: Order Comment: Name Collection Type:: Clean-Voided MidstreamPerformed By: #### TOMY [facility] ####[facility] [place] [address] USAUrobilinogen Test strip (U) [Mass/Vol]Ordered By: Aurelio Jimenez on 91-14-8866Btwalsrxoqop (U) [Mass/Vol]2 mg/dLMercy Health Lorain HospitalpH of Urine by Test stripOrdered By: Aurelio Jimenez on 34-23-6719lS (U)5.5 [pH]Normal5.0-9.0[facility] HospitalComment on above:Order Comment: Name Collection Type:: Clean-Voided MidstreamPerformed By: #### TOMY, [place] ####[place] [place] [address] USAAlanine aminotransferase [Enzymatic activity/volume] in Serum or PlasmaOrdered By: Quentin Dickinson on 06-26-3824UJI [Catalytic activity/Vol]23 U/LNormal7-52[facility] HospitalComment on above: Performed By: #### LIPASE, BMP, JUAN M, HEPATIC, HS TROP, CBC #### [facility] [address] [place] [address] USAAlbumin [Mass/volume] in Serum or Plasma by Bromocresol green (BCG) dye binding methoOrdered By: Quentin Dickinson on 37-05-6916Grozcbe BCG dye [Mass/Vol]4.2 g/dL3.5-5.7FRiverside Methodist HospitalAlkaline phosphatase [Enzymatic activity/volume] in Serum or PlasmaOrdered By: Quentin Dickinson on 72-64-1356EVU [Catalytic activity/Vol]105 U/FTbwv73-581RwaqwblqkMemorial Health System Selby General HospitalComment on above:Performed By: #### LIPASE, BMP, JUAN M, HEPATIC, HS TROP, CBC #### [place] [address] USAAmylase [Enzymatic activity/volume] in Serum or Plasma Ordered By: Quentin Dickinson on 39-16-2207Ehnhlnj [Catalytic activity/Vol]75 U/LNormal 29-103[facility] HospitalComment on above:Performed By: #### LIPASE, BMP, JUAN M, HEPATIC, HS TROP, CBC #### [place] [address] USAAspartate aminotransferase [Enzymatic activity/volume] in Serum or PlasmaOrdered By: Quentin Dickinson on 41-28-4177RTZ [Catalytic activity/Vol] 21 U/LGcrwak46-90NldrcolfzMemorial Health System Selby General HospitalComment on above:Performed By: #### LIPASE, BMP, JUAN M, HEPATIC, HS TROP, CBC #### [place] [address] USAAutomated basophil %Ordered By: Quentin Dickinson on 09-12-2023 Basophils/100 WBC (Bld)0.6 %Normal.[facility] HospitalComment on above:Performed By: #### LIPASE, BMP, JUAN M, HEPATIC, HS TROP, CBC #### [place] [address] USAAutomated basophil countOrdered By: Quentin Dickinson on 49-55-7418Ghwycdhez (Bld) [#/Vol]0.0 10*3/uLNormal0.0-0.2FRiverside Methodist HospitalComment on above:Result Comment: PERFORMED BY: [place] [address] PATHOLOGIST RANCH COOK LUCÍA CARRASCO M.D.Performed By: #### LIPASE, BMP, JUAN M, HEPATIC, HS TROP, CBC #### [place] [address] USAAutomated blood monocyte countOrdered By: Quentin Dickinson on 04-79-4689Itqnjjhru (Bld) [#/Vol]0.4 10*3/uLNormal0.0-0.8[facility] HospitalComment on above:Performed By: #### LIPASE, BMP, JUAN M, HEPATIC, HS TROP, CBC #### [facility] [address] [place] [address] USAAutomated eosinophil %Ordered By: Quentin Dickinson on 09-12-2023 Eosinophils/100 WBC (Bld)1.8 %Normal.[facility] HospitalComment on above:Performed By: #### LIPASE, BMP, JUAN M, HEPATIC, HS TROP, CBC #### [facility] [address] [place] [address] USAAutomated eosinophil countOrdered By: Quentin Dickinson on 68-33-2048Rfnunrvwxlj (Bld) [#/Vol]0.1 10*3/uLNormal0.0-0.45[facility] HospitalComment on above:Performed By: #### LIPASE, BMP, JUAN M, HEPATIC, HS TROP, CBC #### [facility] [address] [place] [address] USAAutomated epithelial cells count in urine sediment (number/area)Ordered By: Quentin Dickinson on 39-52-1514Jycgdyzqus cells Auto (Urine sed) [#/Area]5-9 [HPF]High0-2FRiverside Methodist HospitalAutomated monocyte %Ordered By: Quentin Dickinson on 27-57-8859Dveatpdlh/100 WBC (Bld)6.7 %Normal. [facility] HospitalComment on above:Performed By: #### LIPASE, BMP, JUAN M, HEPATIC, HS TROP, CBC #### [facility] [address] [place] [address] USAAutomated neutrophil %Ordered By: Quentin Dickinson on 09-12-2023 Neutrophils/100 WBC (Bld)58.8 %Normal.[facility] HospitalComment on above:Performed By: #### LIPASE, BMP, JUAN M, HEPATIC, HS TROP, CBC #### [facility] [address] [place] [address] USABacteria [Presence] in Urine by AutomatedOrdered By: Quentin Dickinson on 03-99-2696Whmnihfr Auto Ql (U)None seen [HPF]None SeenMemorial Health System Selby General HospitalBasic Metabolic Panelon 77-99-8550Astmryojii Clr Calc Pgkvgbhp77.66NoPsychiatric hospital Physician GroupComment on above:Performed By: #### LIPASE, BMP, JUAN M, HEPATIC, HS TROP, CBC #### [facility] [address] [place] [id number] USAGFR/1.73 sq M.predicted MDRD (S/P/Bld) [Vol rate/Area] mL/min/{1.73_m2}NormalThe [facility] Physician GroupComment on above:Performed By: #### LIPASE, BMP, JUAN M, HEPATIC, HS TROP, CBC #### [facility] [address] [place] [address] USABilirubin Test strip Ql (U)Ordered By: Quentin Dickinson on 78-95-8769Uvcenzbwg Ql (U)1+HighNegativeMemorial Health System [facility] Hospital Bilirubin.direct [Mass/volume] in Serum or PlasmaOrdered By: Quentin Dickinson on 42-08-7804Jgzjfzzxz.direct [Mass/Vol]0.00 mg/dLLow0.03-0.18FRiverside Methodist HospitalComment on above:If the DBIL is less than 0.1, IBIL is not able to becalculated.Bilirubin.total [Mass/volume] in Serum or PlasmaOrdered By: Quentin Dickinson on 37-22-7665Cjmfvlfoy [Mass/Vol]0.4 mg/dLNormal0.3-1.0[facility] HospitalComment on above:Performed By: #### LIPASE, BMP, JUAN M, HEPATIC, HS TROP, CBC #### [facility] [address] [place] [address] USACT abdomen pelvis wo conon 10-23-6293WP abdomen pelvis wo [facility] [address] [place] [address] [place] [address] CT Scan Report Signed Patient: Zoraida Owens MR#: [id number] : 1970 Acct:[id number] Age/Sex: 52 / F ADM Date: 09/12/23 Loc: ER Room: Type: [facility] ER Attending Dr: Copies to: Quentin Dickinson MD Ordering Provider: Quentin Dickinson MD Date of Service: 09/12/23 CT/CT abdomen pelvis wo con: Abdominal Pain CT ABDOMEN AND PELVIS WITHOUT CONTRAST COMPARISON: 07/21/2008 CLINICAL DATA: Generalized abdominal pain and diarrhea. Spiral images were obtained through the abdomen and pelvis without contrast. This CT exam was performed using one or more following dose reduction techniques: Automated exposure control, adjustment of the mA and/or kV according to patient size, or use of iterative reconstruction technique. Limited cuts through the lung bases show minor atelectasis and/or scarring. Evaluation of the intra-abdominal organs is slightly limited by the absence of contrast. Fatty infiltration of the liver is suspected. There are no calcified gallstones. The spleen and pancreas show no acute findings. Mild adrenal limb thickening is seen. There is a potential punctate stone at the upper pole of the left kidney. No Hydronephrosis is seen. There is a tiny hypodensity at the upper pole the right kidney which might be a cyst. The abdominal aorta is normal caliber. There are small lymph nodes. No ascites is seen. The small bowel loops are not distended. There is a small amount of right-sided colonic stool. The left colon is mostly decompressed. Degenerative changes are present at the spine, greatest at the lower lumbar facets. There is asymmetric sclerosis at the left SI joint. Images through the pelvis show no dilated small bowel. No appendiceal inflammation is present. There is minimal distal colonic stool. No diverticular disease is seen. The uterus is slightly dextrover melissa and there are bilateral tubal ligation clips. The urinary bladder is suboptimally distended for evaluation. There is no free fluid. CT/CT abdomen pelvis wo con IMPRESSION: NO BOWEL OR URINARY TRACT OBSTRUCTION. POSSIBLE TINY RIGHT RENAL CYST AND LEFT RENAL STONE. SUSPICION OF FATTY LIVER. NO ACUTE FINDINGS. Impression dictated by: Lizet Clark M.D.09/12/2023 9:01 AM Dictation Location: [place] [address] Transcribed By: [facility] 09/12/23 0901 Dictated By: Lizet Clark MD 09/12/23 0843 Signed By: 09/12/23 0901[facility] Physician GroupCT head/brain wo deloris 03-11-9088LS head/brain wo [facility] [place] [address] CT Scan Report Signed Patient: Zoraida Owens MR#: [id number] : 1970 Acct:[id number] Age/Sex: 52 / F ADM Date: 09/12/23 Loc: ER Room: Type: [facility] ER Attending Dr: Copies to: Quentin Dickinson MD Ordering Provider: Quentin Dickinson MD Date of Service: 09/12/23 CT/CT head/brain wo con: cxsa CT head/brain wo con 09/12/2023 7:04 AM SIGNS AND SYMPTOMS: Generalized headache, abdominal pain TECHNIQUE:Multi-detector CT axial slices of the brain were obtained without IV contrast. CT was performed with one or more of the following dose reduction techniques: Automated exposure control, adjustment of the mA and/or kV according to patient size, or use of iterative reconstruction technique. COMPARISON: 06/17/2021 FINDINGS: There is no shift of the midline structures, acute intracranial bleeding, mass effects, or evidence of acute ischemia. There is mild diffuse cortical atrophy. The ventricular system is normal in size. The brainstem and the cerebellum are unremarkable. The visualized intraorbital contents, the visualized paranasal sinuses, and the infratemporal soft tissues show no acute abnormality. The osseous structures in the skull base and the calvarium show no abnormality. CT/CT head/brain wo con IMPRESSION: No acute intracranial pathology. Mild age-related cortical atrophy is noted. Impression dictated by: Otto Gentile M.D.09/12/2023 7:59 AM Dictation Location: [place] [address] Transcribed By: [facility] 09/12/23 0759 Dictated By: Otto Gentile II, MD 09/12/23 0756 Signed By: 09/12/23 0759[facility] Physician GroupCalcium [Mass/volume] in Serum or PlasmaOrdered By: Quentin Dickinson on 46-22-1909Tjfhlet [Mass/Vol]9.5 mg/dLNormal 8.6-10.3FRiverside Methodist HospitalComment on above:Performed By: #### LIPASE, BMP, JUAN M, HEPATIC, HS TROP, CBC #### [place] [address] USACarbon dioxide, total [Moles/volume] in Serum or Plasma Ordered By: Quentin Dickinson on 53-40-7252RZ7 [Moles/Vol]26.0 mmol/HFujiff22.0-31.0 [facility] HospitalComment on above:Performed By: #### LIPASE, BMP, JUAN M, HEPATIC, HS TROP, CBC #### [facility] [address] [place] [address] USAChloride [Moles/volume] in Serum or PlasmaOrdered By: Quentin Dickinson on 27-24-0243Lbcgcchn [Moles/Vol]111 mmol/JQvvo49-734WdrtntldfMemorial Health System Selby General HospitalComment on above:Performed By: #### LIPASE, BMP, JUAN M, HEPATIC, HS TROP, CBC #### [facility] [address] [place] [address] USAColor of Urine by AutoOrdered By: Quentin Dickinson on 09-12-2023 Color (U)Dark yellowCritically abnormalYelUC Medical Center Comment on above:Order Comment: Name Collection Type:: Clean-Voided Midstream Performed By: #### CUU, ADDONUAREBECCA, UHCG ####[facility] [place] [id number] USAComplete Blood Count Auto Diffon 09-12-2023 Mean Corpuscular HGB Conc33.0 g/zIMefgqj59.0-35.0The [facility] Comment on above:Performed By: #### LIPASE, BMP, UJAN M, HEPATIC, HS TROP, CBC #### [facility] [address] [place] [address] USAMonocytes/100 WBC (Bld)18.41 %Normal0.00-20.00The [facility] Physician GroupComment on above:Performed By: #### LIPASE, BMP, JUAN M, HEPATIC, HS TROP, CBC #### [facility] [address] [place] [address] USANRBC%0.1 /100{WBC}Normal0-0.5The [facility] Comment on above:Performed By: #### LIPASE, BMP, JUAN M, HEPATIC, HS TROP, CBC #### [facility] [address] [place] [address] USACreatinine [Mass/volume] in Serum or PlasmaOrdered By: Quentin Dickinson on 95-72-6062Hthxhujiny [Mass/Vol]1.01 mg/dLNormal0.60-1.20[facility] HospitalComment on above:Performed By: #### LIPASE, BMP, JUAN M, HEPATIC, HS TROP, CBC #### [facility] [address] [place] [address] USADipstick and Microscopicon 75-67-5767Xcfxobeupl (U)Cloudy Critically abnormalClearThe [facility] Physician GroupComment on above:Order Comment: Name Collection Type:: Clean-Voided MidstreamPerformed By: #### CUU, ADDONUAPLUS, UHCG ####[place] [id number] USABacteria,UrineNone SeenNormalNone SeenThe [facility]ician Group Comment on above:Order Comment: Name Collection Type:: Clean-Voided Midstream Performed By: #### CUU, ADDONUAPLUS, UHCG ####[place] [address] [place] [id number] USABilirubin,Urine1+HighNegativeThe [facility] Physician GroupComment on above:Order Comment: Name Collection Type:: Clean- Voided MidstreamPerformed By: #### CUU, ADDONUAPLUS, UHCG ####[address] [address] USAGlucose Ql (U)NormalNormal NormalThe [facility] Physician GroupComment on above:Order Comment: Name Collection Type:: Clean-Voided MidstreamPerformed By: #### CUU, ADDONUAPLUS, UHCG ####[address] [address] [place] Hyaline Casts,Dfrug8-0Cghnra4-3Mfw [facility] Physician GroupComment on above: Order Comment: Name Collection Type:: Clean-Voided MidstreamPerformed By: #### CUU, ADDONUAPLUS, UHCG ####[address] [address] USAKetones Ql (U)TraceHighNegativeThe [facility] Physician GroupComment on above:Order Comment: Name Collection Type:: Clean- Voided MidstreamPerformed By: #### CUU, ADDONUAPLUS, UHCG ####[address] [address] USALeukocyte esterase Test strip Ql (U)3+HighNegativeThe [facility] Physician GroupComment on above:Order Comment: Name Collection Type:: Clean-Voided MidstreamPerformed By: #### CUU, ADDONUAPLUS, UHCG ####[address] [address] USANitrite,UrineNegativeNormalNegativeThe [facility] Comment on above:Order Comment: Name Collection Type:: Clean-Voided Midstream Performed By: #### CUU, ADDONUAPLUS, UHCG ####[address] [address] USAOccult Blood,UrineNegativeNormalNegativeThe [facility] Physician GroupComment on above:Order Comment: Name Collection Type:: Clean-Voided MidstreamPerformed By: #### CUU, ADDONUAPLUS, UHCG ####[address] [address] USAProtein,UrineNegative NormalNegativeThe [facility] Physician GroupComment on above:Order Comment: Name Collection Type:: Clean-Voided MidstreamPerformed By: #### CUU, ADDONUAPLUS, UHCG ####[place] [id number] [place] RBC,Zznnt5-7Doet4-3Bky [facility] Physician GroupComment on above:Order Comment: Name Collection Type:: Clean-Voided MidstreamPerformed By: #### CUU, ADDONUAPLUS, UHCG ####[place] [id number] USASpecificy [place],Urine1.122Acchax6.001-1.030The [facility] Physician GroupComment on above:Order Comment: Name Collection Type:: Clean-Voided MidstreamPerformed By: #### CUU, ADDONUAPLUS, UHCG ####[place] [address] [place] [address] USASquamous Epithelial Cell,Urine 8-0Gklu0-2Vsp [facility] Physician GroupComment on above:Order Comment: Name Collection Type:: Clean-Voided MidstreamPerformed By: #### CUU, ADDONUAPLUS, UHCG ####[address] [address] [place] Urobilinogen,UrineNormalNormalNormalThe [facility] Physician GroupComment on above:Order Comment: Name Collection Type:: Clean-Voided MidstreamPerformed By: #### CUU, ADDONUAPLUS, UHCG ####[address] [address] USAWBC,Zteru3-7Ulis2-5Uml [facility] Comment on above:Order Comment: Name Collection Type:: Clean-Voided Midstream Performed By: #### CUU, ADDONUAPLUS, UHCG ####[address] [address] [facility]ITALECG 12 lead ECGon 75-81-0714LJP 12 lead ECG [facility] [place] [address] Electrocardiograph Report Signed Patient: Zoraida Owens MR#: [id number] : 1970 Acct:[id number] Age/Sex: 52 / F ADM Date: 09/12/23 Loc: ER Room: Type: [facility] ER Attending Dr: Ordering Provider: Quentin Dickinson MD Date of Service: 09/12/23 ECG/ECG 12 lead ECG: Abdominal Pain Copies to: Test Reason : Blood Pressure : 144/086 mmHG Vent. Rate : 048 BPM Atrial Rate : 048 BPM P-R Int : 122 ms QRS Dur : 080 ms QT Int : 474 ms P-R-T Axes : 080 066 055 degrees QTc Int : 423 ms Sinus bradycardia Otherwise normal ECG When compared with ECG of 20-JUN-2023 18:24, Nonspecific T wave abnormality, improved in Anterior leads Confirmed by QUENTIN DICKINSON MD ([id number]) on 09/13/2023 3:34:55 PM Referred By: Electronically Signed By:QUENTIN DICKINSON MD Transcribed By: MUS Signed By Quentin Dickinson MD 09/13/[address] [place] [address] Physician GroupErythrocyte distribution width [Ratio] by Automated countOrdered By: Quentin Dickinson on 05-56-4868Sborekhbguh distribution width (RBC) [Ratio]13.2 %Sypidh16.9-15.3FRiverside Methodist HospitalComment on above:Performed By: #### LIPASE, BMP, JUAN M, HEPATIC, HS TROP, CBC #### [facility] [address] [place] [phone] USAErythrocytes [#/area] in Urine sediment by Automated count Ordered By: Quentin Dickinson on 52-99-1679YQG Auto (Urine sed) [#/Area]5-9 [HPF]High 0-4FRiverside Methodist HospitalErythrocytes [#/volume] in Blood by Automated countOrdered By: Quentin Dickinson on 96-57-9700ATN (Bld) [#/Vol]4.49 10*6/uL Normal3.60-5.00[facility] HospitalComment on above:Performed By: #### LIPASE, BMP, JUAN M, HEPATIC, HS TROP, CBC #### [facility] [address] [place] [phone] USAGlucose [Mass/volume] in Serum or PlasmaOrdered By: Quentin Dickinson on 63-53-1644Klggsui [Mass/Vol]107 mg/fMVljg38-871AiudmkgjiMemorial Health System Selby General HospitalComment on above:ADA recommended reference rangeRandom Glucose Reference Range is dependent on time and content of last meal. Glucose of more than 200 mg/dL in a nonstressed, ambulatory subject supports the diagnosisof Diabetes Mellitus.Result Comment: Random Glucose Reference Range is dependent on time and content of last meal. Glucose of more than 200 mg/dL in a nonstressed, ambulatory subject supports the diagnosis of Diabetes Mellitus. ADA recommended reference rangePerformed By: #### LIPASE, BMP, JUAN M, HEPATIC, HS TROP, CBC #### [facility] [address] [place] [phone] USAHCG ( test) IA.rapid Ql (U)Ordered By: Quentin Dickinson on 10-73-7496UUY ( test) Ql (U)NegativeMemorial Health System Selby General HospitalHCG,Urineon 32-08-0053Cvbm HCG ( test) Ql (U)NegativeNormMercy Health Anderson Hospitale [facility] Physician GroupComment on above:Order Comment: Name Collection Type:: Clean-Voided MidstreamResult Comment: PERFORMED BY: [place] [address] PATHOLOGIST RANCH COOK LUCÍA CARRASCO M.D.Performed By: #### TOMY LAMAS, CG ####[facility] [place] [address] USAHematocrit [Volume Fraction] of Blood by Automated countOrdered By: Quentin Dickinson on 63-77-3059Qjvlrltjpr (Bld) [Volume fraction]42.0 %Xlvypt26.0-46.4FRiverside Methodist HospitalComment on above:Performed By: #### LIPASE, BMP, JUAN M, HEPATIC, HS TROP, CBC #### [place] [address] USAHemoglobin [Mass/volume] in BloodOrdered By: Quentin Dickinson on 85-58-1036Hklovbrojr (Bld) [Mass/Vol]13.9 g/nIZgzoaq70.8-15.4FRiverside Methodist HospitalComment on above:Performed By: #### LIPASE, BMP, JUAN M, HEPATIC, HS TROP, CBC #### [place] [address] USAHepatic Panelon 66-31-8195Brdstjp [Mass/Vol]4.2 g/dLNormal 3.5-5.7The [facility] Physician GroupComment on above:Performed By: #### LIPASE, BMP, JUAN M, HEPATIC, HS TROP, CBC #### [place] [address] USABilirubin,Indirect0.4 mg/dLNormMercy Health Anderson Hospitale [facility] Physician GroupComment on above:Performed By: #### LIPASE, BMP, JUAN M, HEPATIC, HS TROP, CBC #### [place] [address] USABilirubin.indirect [Mass/Vol]0.00 mg/dLLow0.03-0.18The [facility] Physician GroupComment on above:Result Comment: If the DBIL is less than 0.1, IBIL is not able to be calculated.Performed By: #### LIPASE, BMP, JUAN M, HEPATIC, HS TROP, CBC #### [facility] [address] [place] [address] USAKetones Auto test strip (U) [Mass/Vol]Ordered By: Quentin Dickinson on 21-11-5386Bfvelmo (U) [Mass/Vol]TraceHighNegativeMemorial Health System Selby General HospitalLaboratory - UrinalysisOrdered By: Quentin Dickinson on 09-63-3568Mlqnrzz casts LM Ql (Urine sed)0-8 [LPF]0-8[facility] HospitalLeukocytes [#/area] in Urine sediment by Automated countOrdered By: Quentin Dickinson on 26-40-0274HAA Auto (Urine sed) [#/Area]5-9 [HPF]High0-4FRiverside Methodist HospitalLeukocytes [#/volume] corrected for nucleated erythrocytes in Blood by Automated counOrdered By: Quentin Dickinson on 93-18-8301QWV corrected for nucl RBC Auto (Bld) [#/Vol]5.8 10*3/uL3.8-11.6FRiverside Methodist Hospital Leukocytes [#/volume] in Blood by Automated countOrdered By: Quentin Dickinson on 35-06-4648SQC (Bld) [#/Vol]5.8 10*3/uLNormal3.8-11.6FRiverside Methodist HospitalComment on above:Performed By: #### LIPASE, BMP, JUAN M, HEPATIC, HS TROP, CBC #### [facility] [address] [place] [address] USALipase [Enzymatic activity/volume] in Serum or Plasma Ordered By: Quentin Dickinson on 18-38-7076Ziplad [Catalytic activity/Vol]106.0 U/LHigh 11.0-82.0[facility] HospitalComment on above:Result Comment: PERFORMED BY: [facility] [address] [place] [id number] PATHOLOGIST RANCH COOK LUCÍA CARRASCO M.D.Performed By: #### LIPASE, BMP, JUAN M, HEPATIC, HS TROP, CBC #### [facility] [address] [place] [address] USALymphocytes [#/volume] in Blood by Automated countOrdered By: Quentin Dickinson on 53-61-7784Wtxyczstfvo (Bld) [#/Vol]1.9 10*3/uLNormal1.00-4.8 [facility] HospitalComment on above:Performed By: #### LIPASE, BMP, JUAN M, HEPATIC, HS TROP, CBC #### [place] [address] USALymphocytes/100 leukocytes in Blood by Automated count Ordered By: Quentin Dickinson on 91-91-3600Qrhoacjkjxx/100 WBC (Bld)32.1 %Normal. [facility] HospitalComment on above:Performed By: #### LIPASE, BMP, JUAN M, HEPATIC, HS TROP, CBC #### [address] [Entitic mass] by Automated countOrdered By: Quentin Dickinson on 34-21-7812GFI (RBC) [Entitic mass]30.9 wrWmbxxc07.7-34.3FRiverside Methodist HospitalComment on above:Performed By: #### LIPASE, BMP, JUAN M, HEPATIC, HS TROP, CBC #### [address] Auto (RBC) [Mass/Vol]Ordered By: Quentin Dickinson on 38-21-6744FTXU (RBC) [Mass/Vol]33.0 g/dL32.0-35.0[facility] HospitalMCV [Entitic volume] by Automated countOrdered By: Quentin Dickinson on 08-75-7139PSP (RBC) [Entitic vol]93.6 uYUrfhcl58-228VaktrpibdMemorial Health System Selby General HospitalComment on above:Performed By: #### LIPASE, BMP, JUAN M, HEPATIC, HS TROP, CBC #### [place] [address] USAMonocyte distribution width [Entitic volume] in Blood by AutomatedOrdered By: Quentin Dickinson on 13-29-5635Snvzydof distribution width Auto (Bld) [Entitic vol]18.41 %0.00-20.00[facility] HospitalNeutrophils [#/volume] in Blood by Automated countOrdered By: Quentin Dickinson on 09-12-2023 Neutrophils (Bld) [#/Vol]3.4 10*3/uLNormal1.8-7.7FRiverside Methodist HospitalComment on above:Performed By: #### LIPASE, BMP, JUAN M, HEPATIC, HS TROP, CBC #### [facility] [address] [place] [address] USANitrite Test strip Ql (U)Ordered By: Quentin Dickinson on 46-63-2659Egmtjle Ql (U)NegativeNegativeMemorial Health System Selby General HospitalNo Panel InformationOrdered By: Quentin Dickinson on 15-45-1418Cijnenkbk GFR (CKD-EPI)> 60.0 mL/MinMemorial Health System Selby General HospitalPharmacy Creatinine Clearance (Chem 57.66[facility] HospitalNucleated erythrocytes [Presence] in Blood by Automated countOrdered By: Quentin Dickinson on 22-35-0599Qgnudvepi RBC Auto Ql (Bld)0.1 /100{WBC}0-0.5FRiverside Methodist HospitalPlatelet mean volume [Entitic volume] in Blood by Automated countOrdered By: Quentin Dickinson on 09-12-2023 Platelet mean volume (Bld) [Entitic vol]8.6 fLNormal6.3-10.7FRiverside Methodist HospitalComment on above:Performed By: #### LIPASE, BMP, JUAN M, HEPATIC, HS TROP, CBC #### [facility] [address] [place] [address] USAPlatelets [#/volume] in Blood by Automated countOrdered By: Quentin Dickinson on 72-13-7541Pzztwvdql (Bld) [#/Vol]224 10*3/rSJsmyue734-625 [facility] HospitalComment on above:Performed By: #### LIPASE, BMP, JUAN M, HEPATIC, HS TROP, CBC #### [facility] [address] [place] [address] USAPotassium [Moles/volume] in Serum or PlasmaOrdered By: Quentin Dickinson on 30-68-7388Dapxeidys [Moles/Vol]3.5 mmol/LNormal3.5-5.1FRiverside Methodist HospitalComment on above:Performed By: #### LIPASE, BMP, JUAN M, HEPATIC, HS TROP, CBC #### [facility] [address] [place] [address] USAProtein Auto test strip (U) [Mass/Vol]Ordered By: Quentin Dickinson on 31-15-8356Xfguerq (U) [Mass/Vol]NegativeNegativeMemorial Health System Selby General HospitalProtein [Mass/volume] in Serum or PlasmaOrdered By: Quentin Dickinson on 72-72-2503Bdtscog [Mass/Vol]7.4 g/dLNormal6.4-8.9[facility] HospitalComment on above:Performed By: #### LIPASE, BMP, JUAN M, HEPATIC, HS TROP, CBC #### [place] [address] USASerum globulin measurement by calculation (mass/volume) Ordered By: Quentin Dickinson on 73-04-4854Wkuwulje (S) [Mass/Vol]3.2 g/dLNormal [facility] HospitalComment on above:Performed By: #### LIPASE, BMP, JUAN M, HEPATIC, HS TROP, CBC #### [place] [address] USASerum or plasma albumin/globulin mass ratioOrdered By: Quentin Dickinson on 35-78-6167Tvbpjts/Globulin [Mass ratio]1.3 {ratio}NormalMemorial Health System Selby General HospitalComment on above:Performed By: #### LIPASE, BMP, JUAN M, HEPATIC, HS TROP, CBC #### [place] [address] USASerum or plasma anion gap determinationOrdered By: Quentin Dickinson on 71-64-6739Qpdfx gap [Moles/Vol]6.5 mmol/LNormal6.0-15.0[facility] HospitalComment on above:Performed By: #### LIPASE, BMP, JUAN M, HEPATIC, HS TROP, CBC #### [place] [address] USASerum or plasma non-glucuronidated bilirubin measurement (mass/volume)Ordered By: Quentin Dickinson on 15-57-9360Avrdrfkii.indirect [Mass/Vol] 0.4 mg/dLMercy Health Springfield Regional Medical Centerodium [Moles/volume] in Serum or PlasmaOrdered By: Quentin Dickinson on 09-71-2721Kwywap [Moles/Vol]140 mmol/LNormal 136-145[facility] HospitalComment on above:Performed By: #### LIPASE, BMP, JUAN M, HEPATIC, HS TROP, CBC #### [place] [address] USASpecific gravity Auto test strip (U) [Rel density]Ordered By: Quentin Dickinson on 27-50-3106Dvvyvmyj gravity (U) [Rel density]1.0301.001-1.030 [facility] HospitalTroponin I High Sensitivityon 09-12-2023 Troponin I High Sensitivity< 2.6Lenjpj6.0-15.0[facility] Comment on above:Result Comment: PERFORMED BY: [place] [address] PATHOLOGIST RANCH COOK LUCÍA CARRASCO M.D.Performed By: #### LIPASE, BMP, JUAN M, HEPATIC, HS TROP, CBC #### [place] [address] USATroponin I.cardiac [Mass/volume] in Serum or Plasma by Detection limit <= 0.01 ng/Ordered By: Quentin Dickinson on 72-58-8217Ghutayfo I.cardiac DL <= 0.01 ng/mL [Mass/Vol]< 2.3 pg/mL0.0-15.0[facility] HospitalUrea nitrogen [Mass/volume] in Serum or PlasmaOrdered By: Quentin Dickinson on 96-52-2215Hrei nitrogen [Mass/Vol]15 mg/dLNormal7-25[facility] HospitalComment on above:Performed By: #### LIPASE, BMP, JUAN M, HEPATIC, HS TROP, CBC #### [place] [address] USAUrine Cultureon 05-96-8023Eheqcybv identified Cx Nom (U) 20,000 colonies/ml mixed bacterial skin contaminants 2 Days PERFORMED BY: [facility] [address] [place] [address] PATHOLOGIST RANCH COOK LUCÍA CARRASCO M.D.NormalHca Florida Mercy Hospital Physician GroupComment on above:Performed By: #### TOMY LAMAS, CENTERVILLEG ####[facility] [place] [address] USAUrine clarity by refractometry automatedOrdered By: Quentin Dickinson on 75-96-3092[place] Refractometry automated (U)CloudyAbnormalClear [facility] HospitalUrine culture routineOrdered By: Quentin Dickinson on 85-39-1964Dojdfjlx identified Cx Nom (U)2 DaysMemorial Health System Selby General Hospital Urine glucose measurement by automated test strip (mass/volume)Ordered By: Quentin Dickinson on 38-74-1713Dzwuhtm Auto test strip (U) [Mass/Vol]Normal mg/dLNoOhio State Harding HospitalUrine hemoglobin detection by automated test stripOrdered By: Quentin Dickinson on 42-01-4715Tnezmvymxo Auto test strip Ql (U) NegativeNegativeMemorial Health System Selby General HospitalUrine leukocyte esterase detection by automated test stripOrdered By: Quentin Dickinson on 68-40-2628Zaklueais esterase Auto test strip Ql (U)3+HighNegSalem Regional Medical Center Urine pH measurement by automated test stripOrdered By: Quentin Dickinson on 09-12-2023 pH (U)5.0 [pH]Normal5.0-9.0[facility] HospitalComment on above: Order Comment: Name Collection Type:: Clean-Voided MidstreamPerformed By: #### TOMY LAMAS [facility] ####[facility] [place] [address] USAUrobilinogen Auto test strip (U) [Mass/Vol]Ordered By: Quentin Dickinson on 95-49-0405Fahvpqaejjpi (U) [Mass/Vol]Normal mg/dLSt. Vincent HospitalActivated partial thromboplastin time (aPTT) in platelet poor plasma by coagulation aOrdered By: Jackson Alexandre on 06-20-2023 aPTT Coag (PPP) [Time]30.0 s25.1-36.5FRiverside Methodist HospitalComment on above:A hematocrit value greater than 55% may lead to inaccurate results in coagulation testing. Patientshaving hematocrit values >55% require a special collection tube for coagulation studies. Please contact the laboratory at [phone] for redraw instructions.Basophils Auto (Bld) [#/Vol]Ordered By: Jackson Alexandre on 94-00-5375Sohtmsxqu (Bld) [#/Vol]0.0 10*3/uL0.0-0.2FRiverside Methodist HospitalBasophils/100 WBC Auto (Bld)Ordered By: Jackson Alexandre on 07-51-3168Mmewfohhg/100 WBC (Bld)0.6 %.[facility] HospitalCalcium [Mass/volume] in Serum or PlasmaOrdered By: Jackson Alexandre on 76-98-6790Zmchxls [Mass/Vol]9.1 mg/dL8.6-10.3FRiverside Methodist HospitalCarbon dioxide, total [Moles/volume] in Serum or PlasmaOrdered By: Jackson Alexandre on 06-20-2023 CO2 [Moles/Vol]29.6 mmol/L21.0-31.0[facility] HospitalChloride [Moles/volume] in Serum or PlasmaOrdered By: Jackson Alexandre on 06-20-2023 Chloride [Moles/Vol]106 mmol/V33-689MgqnocoetMemorial Health System Selby General HospitalCreatine kinase [Enzymatic activity/volume] in Serum or PlasmaOrdered By: Jackson Alexandre on 89-31-8738XQ [Catalytic activity/Vol]168 U/H66-675YnfirbpyrMemorial Health System Selby General HospitalCreatinine [Mass/volume] in Serum or PlasmaOrdered By: Jackson Alexandre on 58-58-2747Wkctapgcsg [Mass/Vol]0.93 mg/dL0.60-1.20[facility] HospitalEosinophils Auto (Bld) [#/Vol]Ordered By: Jackson Alexandre on 06-20-2023 Eosinophils (Bld) [#/Vol]0.1 10*3/uL0.0-0.45[facility] Eosinophils/100 WBC Auto (Bld)Ordered By: Jackson Alexandre on 06-20-2023 Eosinophils/100 WBC (Bld)1.9 %.[facility] HospitalErythrocyte distribution width Auto (RBC) [Ratio]Ordered By: Jackson Alexandre on 06-20-2023 Erythrocyte distribution width (RBC) [Ratio]13.2 %11.9-15.3FRiverside Methodist HospitalGlucose [Mass/volume] in Serum or PlasmaOrdered By: Jackson Alexandre on 70-66-1737Xvwxhtt [Mass/Vol]114 mg/oM17-896ZdghtcdgjMemorial Health System Selby General Hospital Comment on above:ADA recommended reference rangeRandom Glucose Reference Range is dependent on time and content of last meal. Glucose of more than 200 mg/dL in a nonstressed, ambulatory subject supports the diagnosisof Diabetes Mellitus. Hematocrit Auto (Bld) [Volume fraction]Ordered By: Jackson Alexandre on 06-20-2023 Hematocrit (Bld) [Volume fraction]40.2 %34.0-46.4FRiverside Methodist HospitalHemoglobin [Mass/volume] in BloodOrdered By: Jackson Alexandre on 06-20-2023 Hemoglobin (Bld) [Mass/Vol]13.4 g/dL11.8-15.4FRiverside Methodist Hospital INR in Platelet poor plasma by Coagulation assayOrdered By: Jackson Alexandre on 98-27-7659TNY Coag (PPP) [Relative time]1.0 {INR}[facility] HospitalComment on above:INR Therapeutic Range A) Pre- and Peroperative OAT started two weeks before surgery. NOT HIP SURGERY: 1.5 - 2.5 HIP SURGERY: 2 - 3B) Primary and secondary prevention of venous THROMBOSIS: 2 - 3C) Active venous thrombosis, pulmonary embolismand prevention of recurrent venous thrombosis: 2 - 3D) Prevention of arterial thromboembolismincluding patients with mechanical heart valves: 3 - 4.5Leukocytes [#/volume] corrected for nucleated erythrocytes in Blood by Automated counOrdered By: Jackson Alexandre on 20-40-0609HWH corrected for nucl RBC Auto (Bld) [#/Vol]7.4 10*3/uL3.8-11.6FRiverside Methodist HospitalLymphocytes Auto (Bld) [#/Vol]Ordered By: Jackson Alexandre on 06-20-2023 Lymphocytes (Bld) [#/Vol]2.8 10*3/uL1.00-4.8[facility] Lymphocytes/100 WBC Auto (Bld)Ordered By: Jackson Alexandre on 06-20-2023 Lymphocytes/100 WBC (Bld)38.2 %.[facility] HospitalH Auto (RBC) [Entitic mass]Ordered By: Jackson Alexandre on 92-30-5346MTT (RBC) [Entitic mass] 31.1 pg24.7-34.3FRiverside Methodist HospitalMCHC Auto (RBC) [Mass/Vol] Ordered By: Jackson Alexandre on 03-90-5141KGSA (RBC) [Mass/Vol]33.2 g/dL32.0-35.0 [facility] HospitalV Auto (RBC) [Entitic vol]Ordered By: Jackson Alexandre on 58-21-4874XOK (RBC) [Entitic vol]93.4 aG00-626HbycyiywfMemorial Health System Selby General HospitalMonocyte distribution width [Entitic volume] in Blood by Automated Ordered By: Jackson Alexandre on 43-28-4155Dqovjvqe distribution width Auto (Bld) [Entitic vol]16.70 %0.00-20.00[facility] HospitalMonocytes Auto (Bld) [#/Vol]Ordered By: Jackson Alexander on 95-68-9308Oqhsuazxk (Bld) [#/Vol]0.5 10*3/uL0.0-0.8[facility] HospitalMonocytes/100 WBC Auto (Bld) Ordered By: Jackson Alexandre on 34-17-9375Ikrtqmgyv/100 WBC (Bld)6.9 %.[facility] HospitalNatriuretic peptide B [Mass/Vol]Ordered By: Jackson Alexander on 39-76-5608Wnoykntbbhk peptide B (Bld) [Mass/Vol]21.0 pg/mL5-100 [facility] HospitalNeutrophils Auto (Bld) [#/Vol]Ordered By: Jackson Alexandre on 49-45-2549Owlgywgmxyr (Bld) [#/Vol]3.9 10*3/uL1.8-7.7FRiverside Methodist HospitalNeutrophils/100 WBC Auto (Bld)Ordered By: Jackson Alexandre on 95-86-0570Fmccniyzlev/100 WBC (Bld)52.4 %.[facility] No Panel InformationOrdered By: Jackson Alexandre on 82-98-2477Galbwfklh GFR (CKD-EPI)> 60.0 mL/MinMemorial Health System Selby General HospitalPharmacy Creatinine Clearance (Chem65.73[facility] HospitalNucleated erythrocytes [Presence] in Blood by Automated countOrdered By: Jackson Alexandre on 06-20-2023 Nucleated RBC Auto Ql (Bld)0.1 /100{WBC}0-0.5FRiverside Methodist Hospital Platelet mean volume Auto (Bld) [Entitic vol]Ordered By: Jackson Alexandre on 23-83-3580Qaupdhsr mean volume (Bld) [Entitic vol]8.6 fL6.3-10.7FRiverside Methodist HospitalPlatelets Auto (Bld) [#/Vol]Ordered By: Jackson Alexandre on 79-05-8166Dbbhvbclr (Bld) [#/Vol]213 10*3/rX149-751LbaguqqhwMemorial Health System Selby General HospitalPotassium [Moles/volume] in Serum or PlasmaOrdered By: Jackson Alexandre on 14-38-7505Jgvdyitne [Moles/Vol]3.4 mmol/L3.5-5.1FRiverside Methodist HospitalProthrombin time (PT)Ordered By: Jackson Alexandre on 54-48-2092WK Coag (PPP) [Time]11.1 s9.0-12.9[facility] HospitalComment on above:A hematocrit value greater than 55% may lead to inaccurate results in coagulation testing. Patientshaving hematocrit values >55% require a special collection tube for coagulation studies. Please contact the laboratory at [phone] for redraw instructions.RBC Auto (Bld) [#/Vol]Ordered By: Jackson Alexandre on 32-89-9466GDV (Bld) [#/Vol]4.30 10*6/uL3.60-5.00[facility] Medical Centererum or plasma anion gap determinationOrdered By: Jackson Alexandre on 13-45-6562Fqtqe gap [Moles/Vol]8.8 mmol/L6.0-15.0[facility] Medical Centerodium [Moles/volume] in Serum or PlasmaOrdered By: Jackson Alexandre on 92-75-8011Qmemrt [Moles/Vol]141 mmol/J605-712HebaieawbMemorial Health System Selby General Hospital Troponin I.cardiac [Mass/volume] in Serum or Plasma by Detection limit <= 0.01 ng/Ordered By: Jackson Alexandre on 63-73-6217Fvbwyhff I.cardiac DL <= 0.01 ng/mL [Mass/Vol]< 2.3 pg/mL0.0-15.0[facility] HospitalUrea nitrogen [Mass/volume] in Serum or PlasmaOrdered By: Jackson Alexandre on 79-01-4010Auet nitrogen [Mass/Vol]11 mg/dL7-25[facility] HospitalWBC Auto (Bld) [#/Vol]Ordered By: Jackson Alexandre on 15-46-7678XDZ (Bld) [#/Vol]7.4 10*3/uL 3.8-11.6FRiverside Methodist HospitalCOVID CepheidOrdered By: Lolis Lucio on 42-87-1933ZZHU-CoV-2 (COVID-19) Ab IA QlNegativeNegativeMemorial Health System Selby General HospitalComment on above:This is a duplicate [place] [employer] Xpert Xpress CoV-2/Flu/RSV Plus RNA by RT-PCR result to be used for statistical tracking purpose only.SARS-CoV-2 (COVID-19) RNA PEDRO+probe Ql (Unsp spec)[facility] HospitalActivated partial thromboplastin time (aPTT) in platelet poor plasma by coagulation aOrdered By: Jackson Alexandre on 64-09-1210eATY Coag (PPP) [Time]29.4 s25.1-36.5FRiverside Methodist HospitalComment on above:A hematocrit value greater than 55% may lead to inaccurate results in coagulation testing. Patientshaving hematocrit values >55% require a special collection tube for coagulation studies. Please contact the laboratory at [phone] for redraw instructions.Basophils Auto (Bld) [#/Vol]Ordered By: Jackson Alexandre on 61-66-1390Ltnrvtjhd (Bld) [#/Vol]0.1 10*3/uL0.0-0.2FRiverside Methodist HospitalBasophils/100 WBC Auto (Bld)Ordered By: Jackson Alexandre on 02-02-2023 Basophils/100 WBC (Bld)1.1 %.[facility] HospitalCalcium [Mass/volume] in Serum or PlasmaOrdered By: Jackson Alexandre on 14-06-3011Hxcceuv [Mass/Vol]9.3 mg/dL8.6-10.3FRiverside Methodist HospitalCarbon dioxide, total [Moles/volume] in Serum or PlasmaOrdered By: Jackson Alexandre on 02-02-2023 CO2 [Moles/Vol]28.5 mmol/L21.0-31.0[facility] HospitalChloride [Moles/volume] in Serum or PlasmaOrdered By: Jackson Alexandre on 02-02-2023 Chloride [Moles/Vol]106 mmol/L61-340EaocxrsmzMemorial Health System Selby General HospitalCreatine kinase [Enzymatic activity/volume] in Serum or PlasmaOrdered By: Jackson Alexandre on 04-81-4822EK [Catalytic activity/Vol]558 U/R92-524GlcnoqbjfMemorial Health System Selby General HospitalCreatinine [Mass/volume] in Serum or PlasmaOrdered By: Jackson Alexandre on 00-68-9910Plxcjmnajt [Mass/Vol]1.03 mg/dL0.60-1.20[facility] HospitalEosinophils Auto (Bld) [#/Vol]Ordered By: Jackson Alexandre on 02-02-2023 Eosinophils (Bld) [#/Vol]0.1 10*3/uL0.0-0.45[facility] Eosinophils/100 WBC Auto (Bld)Ordered By: Jackson Alexandre on 02-02-2023 Eosinophils/100 WBC (Bld)1.6 %.[facility] HospitalErythrocyte distribution width Auto (RBC) [Ratio]Ordered By: Jackson Alexandre on 02-02-2023 Erythrocyte distribution width (RBC) [Ratio]13.3 %11.9-15.3FRiverside Methodist HospitalGlucose [Mass/volume] in Serum or PlasmaOrdered By: Jackson Alexandre on 35-98-9136Yelkmid [Mass/Vol]134 mg/fE76-270KveqyjqxvMemorial Health System Selby General Hospital Comment on above:ADA recommended reference rangeRandom Glucose Reference Range is dependent on time and content of last meal. Glucose of more than 200 mg/dL in a nonstressed, ambulatory subject supports the diagnosisof Diabetes Mellitus. Hematocrit Auto (Bld) [Volume fraction]Ordered By: Jackson Alexandre on 02-02-2023 Hematocrit (Bld) [Volume fraction]43.2 %34.0-46.4FRiverside Methodist HospitalHemoglobin [Mass/volume] in BloodOrdered By: Jackson Alexandre on 02-02-2023 Hemoglobin (Bld) [Mass/Vol]14.5 g/dL11.8-15.4FRiverside Methodist Hospital INR in Platelet poor plasma by Coagulation assayOrdered By: Jackson Alexandre on 36-29-0886NEL Coag (PPP) [Relative time]0.9 {INR}[facility] HospitalComment on above:INR Therapeutic Range A) Pre- and Peroperative OAT started two weeks before surgery. NOT HIP SURGERY: 1.5 - 2.5 HIP SURGERY: 2 - 3B) Primary and secondary prevention of venous THROMBOSIS: 2 - 3C) Active venous thrombosis, pulmonary embolismand prevention of recurrent venous thrombosis: 2 - 3D) Prevention of arterial thromboembolismincluding patients with mechanical heart valves: 3 - 4.5Leukocytes [#/volume] corrected for nucleated erythrocytes in Blood by Automated counOrdered By: Jackson Alexandre on 01-38-1062NKX corrected for nucl RBC Auto (Bld) [#/Vol]7.6 10*3/uL3.8-11.6FRiverside Methodist HospitalLymphocytes Auto (Bld) [#/Vol]Ordered By: Jackson Alexandre on 02-02-2023 Lymphocytes (Bld) [#/Vol]2.4 10*3/uL1.00-4.8[facility] Lymphocytes/100 WBC Auto (Bld)Ordered By: Jackson Alexandre on 02-02-2023 Lymphocytes/100 WBC (Bld)31.8 %.[facility] HospitalH Auto (RBC) [Entitic mass]Ordered By: Jackson Alexandre on 12-14-2049KXS (RBC) [Entitic mass] 31.4 pg24.7-34.3FRiverside Methodist HospitalMCHC Auto (RBC) [Mass/Vol] Ordered By: Jackson Alexandre on 37-25-4027NPNU (RBC) [Mass/Vol]33.6 g/dL32.0-35.0 [facility] HospitalMCV Auto (RBC) [Entitic vol]Ordered By: Jackson Alexandre on 53-50-2392YYZ (RBC) [Entitic vol]93.6 qV21-549KsiorsjlzMemorial Health System Selby General HospitalMonocyte distribution width [Entitic volume] in Blood by Automated Ordered By: Jackson Alexandre on 55-13-6585Bcndsotl distribution width Auto (Bld) [Entitic vol]19.77 %0.00-20.00[facility] HospitalMonocytes Auto (Bld) [#/Vol]Ordered By: Jackson Alexandre on 78-62-8587Ushygcjcl (Bld) [#/Vol]0.3 10*3/uL0.0-0.8[facility] HospitalMonocytes/100 WBC Auto (Bld) Ordered By: Jackson Alexandre on 78-76-1721Yennqgvvy/100 WBC (Bld)3.4 %.[facility] HospitalNeutrophils Auto (Bld) [#/Vol]Ordered By: Jackson Alexandre on 92-56-5170Hiwgpuuibht (Bld) [#/Vol]4.7 10*3/uL1.8-7.7FRiverside Methodist HospitalNeutrophils/100 WBC Auto (Bld)Ordered By: Jackson Alexandre on 03-74-3733Ycmkpxgangg/100 WBC (Bld)62.1 %.[facility] HospitalNo Panel InformationOrdered By: Jackson Alexandre on 12-64-6313Yxqfqsvsl GFR (CKD-EPI) > 60.0 mL/MinMemorial Health System Selby General HospitalPharmacy Creatinine Clearance (Chem57.46[facility] HospitalNucleated erythrocytes [Presence] in Blood by Automated countOrdered By: Jackson Alexandre on 86-79-6695Tychgptpz RBC Auto Ql (Bld)0.2 /100{WBC}0-0.5FRiverside Methodist HospitalPlatelet mean volume Auto (Bld) [Entitic vol]Ordered By: Jackson Alexandre on 85-81-4734Acvmgsie mean volume (Bld) [Entitic vol]8.8 fL6.3-10.7FRiverside Methodist Hospital Platelets Auto (Bld) [#/Vol]Ordered By: Jackson Alexandre on 63-76-9839Hpjeywddj (Bld) [#/Vol]194 10*3/hI187-210YrihapduvMemorial Health System Selby General HospitalPotassium [Moles/volume] in Serum or PlasmaOrdered By: Jackson Alexandre on 10-15-2023 Potassium [Moles/Vol]3.9 mmol/L3.5-5.1FRiverside Methodist Hospital Prothrombin time (PT)Ordered By: Jackson Alexandre on 36-25-1671CY Coag (PPP) [Time]11.0 s9.0-12.9[facility] HospitalComment on above:A hematocrit value greater than 55% may lead to inaccurate results in coagulation testing. Patientshaving hematocrit values >55% require a special collection tube for coagulation studies. Please contact the laboratory at [phone] for redraw instructions.RBC Auto (Bld) [#/Vol]Ordered By: Jackson Alexandre on 52-40-0516TVK (Bld) [#/Vol]4.62 10*6/uL3.60-5.00[facility] Centererum or plasma anion gap determinationOrdered By: Jackson Alexandre on 95-02-0500Dslvx gap [Moles/Vol]10.4 mmol/L6.0-15.0[facility] Medical Centerodium [Moles/volume] in Serum or PlasmaOrdered By: Jackson Alexandre on 66-01-1541Gpqqos [Moles/Vol]141 mmol/O758-720WiuizplbbMemorial Health [facility] Troponin I.cardiac [Mass/volume] in Serum or Plasma by Detection limit <= 0.01 ng/Ordered By: Jackson Alexandre on 04-81-3016Icmzdekm I.cardiac DL <= 0.01 ng/mL [Mass/Vol]2.6 pg/mL0.0-15.0[facility] HospitalUrea nitrogen [Mass/volume] in Serum or PlasmaOrdered By: Jackson Alexandre on 46-71-2422Egsu nitrogen [Mass/Vol]11 mg/dL7-25[facility] HospitalWBC Auto (Bld) [#/Vol]Ordered By: Jackson Alexandre on 69-58-0304JFM (Bld) [#/Vol]7.6 10*3/uL 3.8-11.6FRiverside Methodist Hospital Vital Signs Date TimeVital SignValuePerforming MzfhewxjbLghepmkj08-55-8574 09:34-0400Body rqoptx749.4 cmJareth Salazar DPMary Work Phone: [facility] CenterCdefhpsmyz83-46-8115 09:34-0400Body mass index (BMI) [Ratio]31.64 kg/n4Mzsjcyas Brown DPM Work Phone: [phone] [place], [place] [address]Ywkvjescyj55-80-1386 09:34-0400Body idnkpe49.48 kgNicholas Brown DPM Work Phone: 1(678)031-[address] [place], [place] [address]Xowwlhawci74-05-6505 09:34-0400Respiratory rate16 /minNicholas Brown DPM Work Phone: 1(640)[facility] [place], [place] [address]Cnnsafohht57-57-6934 11:10-0400Body vfedno486.4 cmNicholas Brown DPM Work Phone: [phone])[address] [place], [place] 6243910-06-2025 11:10-0400Body mass index (BMI) [Ratio]31.64 kg/o6Ifslscdh Brown DPM Work Phone: 1(467)[address] [place], [place] 6243910-06-2025 11:10-0400Body umwwvz39.48 kgNicholas Brown DPM Work Phone: 1(945)[facility] [place], [place] [address]Uecarwjnwa90-31-9389 11:10-0400Respiratory rate18 /minNicholas Brown DPM Work Phone: 1(036)781-[address] [place], [place] [address]Nmulxjryts16-72-6672 16:00-0400Body .4 cmNicholas Brown DPM Work Phone: 1([phone])53-[address] [place], [place] [address]Tssssvfway25-12-5832 16:00-0400Body mass index (BMI) [Ratio]31.64 kg/n6Jhdgpqnb Brown DPM Work Phone: 1(075)7-[address] [place], [place] [address]Qmtnprvgcq70-47-1927 16:00-0400Body rkqqib20.48 kgNicholas Brown DPM Work Phone: 1(824)931-[address] [place], [place] [address]Frokwqxviq64-22-4737 16:00-0400Respiratory rate18 /minNicholas Brown DPM Work Phone: 1(076)840-[address] [place], [place] [address]Nmtaelstuc39-05-3848 19:27-0400Body zmprat229.4 [facility] Work Phone: [facility]03-25-2025 19:27-0400 Body ieodubmoasd12.7 [degF][facility] [employer] Work Phone: 1([phone])[address]03-25-2025 19:27-0400 Body gvigbg85.8 kgSerkirkbride center eyeQ Work Phone: [phone])[address]03-25-2025 19:27-0400 Diastolic blood jssaregy81 mm[Hg]Services [facility] Work Phone: 1(546)377[address]03-25-2025 19:27-0400 Heart rate62 /[employer] Work Phone: [phone])45175 [address]03-25-2025 19:27-0400 Respiratory rate18 /minSBoardBook[employer] Work Phone: 1(513)750[address]03-25-2025 19:27-0400 SaO2% (BldA) [Mass fraction]100 %Services [facility] Work Phone: 1(823)389[address]03-25-2025 19:27-0400 Systolic blood mm[Hg]Services [facility] Work Phone: 1(765)32775 [address]08-13-2024 21:14-0400 Body .4 cmSva [facility] Work Phone: 1(432)47675 [address]08-13-2024 21:14-0400 Body skulddbrgjx88.8 [degF]Services [facility] Work Phone: 1(207)810[address]08-13-2024 21:14-0400 Body .03 kgSerkirkbride center eyeQ Work Phone: 1([phone])99175 [address]08-13-2024 21:14-0400 Diastolic blood zcvhpkyb03 mm[Hg]Services [facility] Work Phone: 1(713)051-[address] [place], [place] 6282208-13-2024 21:14-0400 Heart rate79 /[employer] Work Phone: 1(544)83[address]08-13-2024 21:14-0400 Respiratory rate16 /minSBoardBook[employer] Work Phone: 1(419)[address] [place], [place] 7311108-13-2024 21:14-0400 SaO2% (BldA) [Mass fraction]95 %[facility] Work Phone: 1(457)[address] [place], [place] 7311108-13-2024 21:14-0400 Systolic blood hyixupid259 mm[Hg]Services [facility] Work Phone: 1(817)[address] [place], [place] 7311106-20-2024 06:47-0400 Body avnjeobmgaa26 [degF][facility] Work Phone: 1(576)[address] [place], [place] 7311106-20-2024 06:47-0400 Diastolic blood isuhuhnq81 mm[Hg][facility] [employer] Work Phone: 1(616)[address] [place], [place] 7311106-20-2024 06:47-0400 Heart rate68 /minServices eyeQ Work Phone: 1(963)[address] [place], [place] 7311106-20-2024 06:47-0400 Respiratory rate18 /minServices eyeQ Work Phone: 1(026)[address] [place], [place] 7311106-20-2024 06:47-0400 SaO2% (BldA) [Mass fraction]99 %[facility] [employer] Work Phone: 1(769)[address] [place], [place] 7311106-20-2024 06:47-0400 Systolic blood birwahcs950 mm[Hg]Services [facility] Work Phone: 1(638)[address] [place], [place] 7311106-20-2024 06:46-0400 Body .4 cmServices eyeQ Work Phone: 1(395)[address] [place], [place] 7311106-20-2024 06:46-0400 Body abjjvo63.76 kgServices eyeQ Work Phone: 1(095)[address] [place], [place] 7311105-24-2024 09:00-0400 Diastolic blood qrfoqvwt33 mm[Hg]Services [facility] Work Phone: 1(190)[address] [place], [place] 7311105-24-2024 09:00-0400 Heart rate50 /minServices eyeQ Work Phone: 1(426)[address] [place], [place] 7311105-24-2024 09:00-0400 Respiratory rate16 /minSBoardBook[employer] Work Phone: 1(347)228-[address] [place], [place] 6282205-24-2024 09:00-0400 SaO2% (BldA) [Mass fraction]100 %Services [facility] Work Phone: 1(955)19775 [address]05-24-2024 09:00-0400 Systolic blood jtjjbick615 mm[Hg]Services [facility] Work Phone: 1(705)07475 [address]05-24-2024 06:53-0400 Body azkayb097.4 [facility] HospitalBoard[facility] Work Phone: 1(061)698[address]05-24-2024 06:53-0400 Body ahfjgu94.3 kgSerkirkbride center eyeQ Work Phone: 1(140)[address]05-24-2024 06:52-0400 Body yrdrvvbjmzx25.5 [degF]Services [facility] Work Phone: 1(362)[address]03-01-2024 22:30-0500 Diastolic blood jxcycowm25 mm[Hg]Services [facility] Work Phone: 1(249)224[address]03-01-2024 22:30-0500 Heart rate53 /[employer] Work Phone: 1([phone]-[facility]03-01-2024 22:30-0500 SaO2% (BldA) [Mass fraction]98 %Services [facility] Work Phone: [phone]-[facility]03-01-2024 22:30-0500 Systolic blood rwwdhgis590 mm[Hg]Services [facility] Work Phone: 1(293)251-[address] [place], [place] 6282203-01-2024 20:57-0500 Respiratory rate18 /[employer] Work Phone: 1(137)325-[address] [place], [place] 6282203-01-2024 18:26-0500 Body lnoaeb971.4 [facility] HospitalBoard[facility] Work Phone: 1(274)373-[address] [place], [place] 6282203-01-2024 18:26-0500 Body rrpfywobxmc11 [degF]Services [facility] Work Phone: 1(419)[address]03-01-2024 18:26-0500 Body .2 kgSerkirkbride center eyeQ Work Phone: 1(181)[address] [place], [place] 7311111-27-2023 14:29-0500 Body ftytrzximtt01 [degF]Services [facility] Work Phone: 1(469)[address] [place], [place] 7311111-27-2023 14:29-0500 Diastolic blood vqkcqsoi21 mm[Hg][facility] [employer] Work Phone: 1(656)[address] [place], [place] 7311111-27-2023 14:29-0500 Heart rate94 /[employer] Work Phone: 1(927)[address] [place], [place] 7311111-27-2023 14:29-0500 Respiratory rate18 /minSBoardBook[employer] Work Phone: 1(515)[address] [place], [place] 7311111-27-2023 14:29-0500 SaO2% (BldA) [Mass fraction]96 %Services [facility] Work Phone: 1(442)[address] [place], [place] 7311111-27-2023 14:29-0500 Systolic blood lhvqripx285 mm[Hg]Services [facility] Work Phone: 1(114)[address] [place], [place] 7311111-27-2023 11:55-0500 Body zgcfug196.4 [employer] Work Phone: 1(495)[address] [place], [place] 7311111-27-2023 11:55-0500 Body qhwapi12.3 kgSerkirkbride center eye[facility] Work Phone: 1(121)[address] [place], [place] 7311110-15-2023 18:00-0400 Diastolic blood mm[Hg]Services [facility] Work Phone: 1(660)[address] [place], [place] 7311110-15-2023 18:00-0400 Heart rate60 /minSBoardBook[employer] Work Phone: 1(922)[address] [place], [place] 7311110-15-2023 18:00-0400 Respiratory rate16 /minSBoardBookit Work Phone: 1(670)[address] [place], [place] 7311110-15-2023 18:00-0400 SaO2% (BldA) [Mass fraction]100 %Services [facility] Work Phone: 1(034)82575 [address]10-15-2023 18:00-0400 Systolic blood uvuacxqj792 mm[Hg]Services [facility] Work Phone: 1(271)[address]175 [address]10-15-2023 16:38-0400 Body ekmgihgmotu57.6 [degF]Services [facility] Work Phone: 1(162)620-[address] [place], [place] 6282210-15-2023 16:34-0400 Body sliijt723.4 cmSBoardBook[employer] Work Phone: 1(797)80475 [address]10-15-2023 16:34-0400 Body zsfnqy24.57 kgSermethodist hospital of southern californiaes eye[facility] Work Phone: 1(839)6[address]06-24-2023 04:37-0400 Body vybhkr636.4 cmSBoardBookit Work Phone: 1(437)[address]06-24-2023 04:37-0400 Body emmxakwxnbv25.9 [degF]Services [facility] Work Phone: 1(762)[address]06-24-2023 04:37-0400 Body .57 kgSermethodist hospital of southern californiaes eyeQ Work Phone: 1(020)68475 [address]06-24-2023 04:37-0400 Heart rate72 /[employer]Serv[employer] Work Phone: 1(518)251-[address] [place], [place] 6282206-24-2023 04:37-0400 Respiratory rate18 /minServices eyeQ Work Phone: 1(795)065-[address] [place], [place] 6282206-24-2023 04:37-0400 SaO2% (BldA) [Mass fraction]95 %Services [facility] Work Phone: 1(983)183-[facility]04-09-2023 23:23-0400 Diastolic blood fhawlzuv55 mm[Hg]Services [facility] Work Phone: 1(107)657-[address] [place], [place] 6282204-09-2023 23:23-0400 Heart rate78 /minServices eyeQ Work Phone: [facility]04-09-2023 23:23-0400 Respiratory rate18 /minServices [employer] [facility] Work Phone: 1(401)518-[facility]04-09-2023 23:23-0400 SaO2% (BldA) [Mass fraction]100 %Services [facility] [employer] Work Phone: 1(669)399-[address] [place], [place] 6282204-09-2023 23:23-0400 Systolic blood extziwgm698 mm[Hg]Services [facility] [employer] Work Phone: 1(024)538-[facility]04-09-2023 22:32-0400 Body eukoda472.4 cmServices [employer] [facility] Work Phone: 1([phone] [place], [place] 6282204-09-2023 22:32-0400 Body hatzlwkjagn22.8 [degF]Services [facility] Work Phone: 1(489)687-[address] [place], [place] 6282204-09-2023 22:32-0400 Body gxygsi84 kgServices [facility] Work Phone: 1([phone] [place] [address] Encounters Encounter DateEncounter TypeCare ProviderFacilityStart: 02-11-2025 End: 80-44-6703Qdbmov Anatoliy Salazar DPM Work Phone: no [facility] PodiatryStart: 02-11-2025 End: 84-65-1792Jnywcf Anatoliy Salazar DPM Work Phone: [facility] PodiatryStart: 02-11-2025 End: 48-41-5392jbovjpvrbjHRXDEPZL A BROWNNot AvailableStart: 02-11-2025 End: 38-82-7825Ordkap outpatient visit 15 minutesJareth Salazar DPM Work Phone: no [facility]ados PodiatryComment on above:Left Achilles tendinitis (Primary Dx); Plantar fasciitis; Contracture of left ankle; Contracture of right ankleStart: 01-24-2025 End: 65-62-1246Vuqpps Anatoliy Salazar DPM Work Phone: noMS [facility] PodiatryStart: 01-24-2025 End: 26-53-4187Lwussy Anatoliy Salazar DPM Work Phone: noMS [facility] PodiatryStart: 01-24-2025 End: 84-29-7346Qfbvqz outpatient visit 15 minutesNicabby Salazar DPM Work Phone: noMS Alexis Granados PodiatryComment on above:Left Achilles tendinitis (Primary Dx); Plantar fasciitis; Contracture of left ankle; Contracture of right ankleStart: 01-24-2025 End: 78-25-6078elnjrshgxuOPFYCHGR A BROWNNot AvailableStart: 01-10-2025 End: 32-00-2536Ugqiuc outpatient new 30 minutesNicabby Salazar DPM Work Phone: noMS Alexis Granados PodiatryComment on above:Left Achilles tendinitis (Primary Dx); Heel spur, left; Plantar fasciitis; Contracture of left ankle; Contracture of right ankleStart: 01-10-2025 End: 43-42-1434qtqvtwhbmxSFUPAYGI A BROWNNot AvailableStart: 01-10-2025 End: 93-41-5266Jhypyj shawnNicabby Salazar DPM Work Phone: noMS [facility] PodiatryStart: 01-10-2025 End: 00-88-4851Cvzzou Anatoliy Salazar DPM Work Phone: noMS [facility] Granados PodiatryStart: 07-13-2024 End: 37-74-5816Pcpoqozts department patient visitServices [facility] Work Phone: [facility] Work Phone: Start: 12-15-2023 End: 75-53-6947cdqjlhvosmWlrypsdm Family Health Work Phone: [facility] Work Phone: Start: 12-15-2023 End: 24-90-5010Vtsjjtl encounter procedureServices Family [facility] Work Phone: [facility] Work Phone: Start: 12-02-2023 End: 00-68-6669Igvcmzxzc department patient visitServices Family [facility] Work Phone: [facility] Work Phone: Start: 10-09-2023 End: 59-88-5648Enyinogdh department patient visitServices Family [facility] Work Phone: [facility] Work Phone: Start: 09-12-2023 End: 33-77-1769Tmjvbmcpp department patient visitServices Family [facility] Work Phone: [facility] Work Phone: Start: 06-20-2023 End: 06-80-3785Xhqgvcrwx department patient visitServices [facility] Work Phone: [facility] Work Phone: Start: 03-17-2023 End: 06-38-4426Xxjlgevgl department patient visitServices [facility] Work Phone: [facility] Work Phone: Start: 02-02-2023 End: 59-68-1056Bdjebbsji department patient visitServices Family [facility] Work Phone: [facility] Work Phone: Start: 10-12-2022 End: 45-78-5833Eewcyrnla department patient visitServices Family [facility] Work Phone: [facility] Work Phone: Start: 07-28-2022 End: 34-62-4029Hvjhpefum department patient visitServices Family [facility] Work Phone: [facility] Work Phone: Procedures DateProcedureProcedure DetailPerforming ClinicianStart: 65-92-1775Hices X-ray of right shoulderServices [facility] [employer] Work Phone: Start: 28-84-5238Thxcfzakzrrcd of growth of fungi Services [facility] Work Phone: Start: 21-86-3619Adglxasxtij vaginalis detection Services eyeQ Work Phone: Start: 09-01-5684S-ray of left ankleServices [facility] [employer] Work Phone: Start: 13-35-3655Fhwik X-ray of left tibia and left fibulaServices eyeQ Work Phone: Start: 58-37-0110Zxqvj cultureServices [facility] [employer] Work Phone: Start: 21-66-9492QU of abdomen and pelvis without contrastServices [facility] [employer] Work Phone: Start: 80-11-7808IZ of head without contrastServices eyeQ Work Phone: Start: 56-49-7302Qizpa chest X-rayServices eyeQ Work Phone: Start: 15-76-2426NZKH-CoV-2, Influenza & RSV (PCR) Services eyeQ Work Phone: Start: 14-01-3228Uucpt chest X-rayServices eyeQ Work Phone: Start: 68-86-8212Mfdcn chest X-rayServices eyeQ Work Phone: Plan of Treatment DateCare ActivityDetailAuthorStart: 02-11-2025 End: 05-86-7914Hjcmthv encounter pykerpzzd94/24/2025 9:30 AM EDT Office Visit [facility] [address] [place] [address] Jareth Salazar DPM [address] [address] HOLLANDSatinder Espinoza Darwin PodiatryStart: 01-24-2025 End: 46-88-0257Uvsrhnao Nuogaij0301/24/2025 11:10 AM EDT Clinical Support MONICA Washingtonwally [facility] [address] [place] [phone] Jareth Salazar, IMELDA [address] [address] Left Achilles tendinitis (Primary Dx); Plantar fasciitis; Contracture of left ankle; Contracture of right ankleNOMS Washington Darwin PodiatryComment on above:Left Achilles tendinitis (Primary Dx); Plantar fasciitis; Contracture of left ankle; Contracture of right ankleStart: 01-10-2025 End: 17-43-9780Nhemyfy encounter lyrnkrekz00/22/2025 4:00 PM EDT Office Visit [facility] [address] [place] [address] Jareth Salazar, IMELDA [address] [address] MONICA [facility] PodiatryStart: 42-69-9874Peqpksrsq vaccinationInfluenza Vaccine (#1)[facility] HealthcareStart: 79-51-3261GsayqtizwMercy Health [facility] Regional Medical Centertart: 55-15-3675Gaakogi Culture Genital CultureMercy Health [facility] Regional Medical Centertart: 46-33-4575Z-ray of left ankleXR ankle LT min 3V*[facility] Centertart: 02-98-1835PO Ankle - left GE 3 ViewsMercy Health [facility] Regional Medical Centertart: 47-87-8791Cgqvh X-ray of left tibia and left fibulaXR tibia fibula LT 2V*[facility] Medical Centertart: 36-22-7854TW Tibia and Fibula - left 2 Protestant Hospitaltart: 71-93-0941HiawejorhMercy Health [facility] Regional Medical Centertart: 46-03-2142Slrstigz identified in Urine by CultureMercy Health [facility] Regional Medical Centertart: 29-71-0985Ifcis chest X-rayXR chest 2V*[facility] Centertart: 29-85-8771L-ray of soft tissue of neckXR soft tissue neckMercy Health [facility] Regional Medical Centertart: 12-61-5727GJ Chest 2 ViewsMercy Health [facility] Regional Medical Centertart: 70-43-2564ZI Neck ViewsMemorial Health System [facility] Hospital Start: 53-44-0318Wkypwydhy for malignant neoplasm of breastMammogramNOMS HealthcareStart: 85-76-1872Mwabgdler for malignant neoplasm of cervixNOMS HealthcareStart: 20-34-1786Yattenzhb for malignant neoplasm of cervixPap Smear [facility] HealthcareStart: 33-66-8616Heucuysqi for malignant neoplasm of colonNOMS HealthcareBacteria identified in Genital specimen by Aerobe cultureMemorial Health System Selby General HospitalChlamydia trachomatis DNA [Presence] in Unspecified specimen by PEDRO with probe detectionMemorial Health System Selby General HospitalNeisseria gonorrhoeae DNA [Presence] in Unspecified specimen by PEDRO with probe detection [facility] HospitalPatient EducationTrinity Health [facility] Work Phone: Patient referralTrinity Health System West Campus [facility]tr Work Phone: Trichomonas vaginalis DNA [Presence] in Unspecified specimen by PEDRO with probe detectionMemorial Health System Selby General Hospital Immunizations Immunization DateImmunizationNotesCare QmeszdqgCjftpina05-00-3274qxfenpf toxoid, reduced diphtheria toxoid, and acellular pertussis vaccine, [facility] Work Phone: [facility] Payers DatePayer CategoryPayerPolicy [id number] Health InsuranceCARESOURCE MEDICAID [id number] [id number]-yna [id number] 2..1.708331.3.57[id number] 2..1.844196.3.57[id number] 2.0.1.814894.3.579.[id number] 2.0.1.4[id number] 2.0.1.515891.3.579.2.531 [id number] 2.0.1.8[id number] 2.0.1.5[id number] 2.0.1.059384.3.579.2.531 Social History DateTypeDetailFacilityStart: 07-28-2022 End: 36-57-8876Slhyugo smoking status NHISSmoker (finding)[facility] Centertart: 16-14-5481Kzv Assigned At BirthFeSheltering Arms Hospitaltart: 98-19-7572RckKlhjqq (finding)[facility] HospitalTobacco smoking status NHISTobacco smoking consumption unknownNOMS HealthcareStart: 52-51-9344Vzx assigned at birthNot on fileNOMS HealthcareStart: 01-10-2025 End: 39-68-4432Iscggj identityNot on fileCENTRAL VALLEY [facility] HealthcareStart: 88-90-1750Gsgcpsa smoking status NHISSmokes tobacco dailyNOMS HealthcareHistory of tobacco use Cigarette SmokerNOMS HealthcareStart: 01-10-2025 End: 31-41-6915Zhdcxpv of Social functionNOMS HealthcareStart: 82-80-6537Eav FemaleNOMS HealthcareNEGATED: Highlighted [facility] Clinical Notes 12-02-2023 to 02-11-2025 Note Date & BfvmOnpuXixpquie57-32-8843 History of Present illness Narrative* Jareth Salazar, DPM - 02/11/2025 9:30 AM EDT Patient: Zoraida Owens : 1970 PCP: Noms Provider MD Thony SUBJECTIVE Pt presents today for follow up of left HSS. Pt has had previous treatment of 1st steroid injection, nsaids, stretching with relief. Pt states current pain on a 1-10 scale is a 5 Pt presents to day for follow up tx. Patient has similar complaints to the right heel and rates it up to a 0-1/10 Pt presents today for follow up of left achilles tendonitis . Pt has had previous treatment of medrol pack with positive improvement in the past. Pt states current pain on a 1-10 scale is a 5 Pt presents to day for follow up tx. Pt presents today for orthotics. Allergies: Allergies Allergen Reactions Ibuprofen GI intolerance [...] Ankle ROM less than 10 degrees b/l. positive pain on palpation to left medial calcaneal tubercle diminished pain on palpation to right medial calcaneal tubercle diminished pain on palpation left Achilles tendon with negative palpable Tie Siding XRAY: ASSESSMENT 1. Left Achilles tendinitis 2. Plantar fasciitis 3. Contracture of left ankle 4. Contracture of right ankle PLAN Patient to continue with oral anti - inflammatories as needed for pain and recommended OTC medications such as tylenol or Ibuprofen Patient is to continue with stretching excercizes daily with patient to continue with night stretching splint or manual stretching. Pt was fitted for custom made orthotics today. Orthotics were deemed to fit appropriately and patient was informed of proper break in of devices. Patient education on break in of device. ABN signed and in chart if warranted. Jareth Salazar DPM documented in this encounterCenterpoint Medical CenterTmgzxtznla37-71-5478 History of Present illness Narrative* Jareth Salazar DPM - 01/24/2025 11:10 AM EDT Patient: Zoraida Owens : 1970 PCP: Noms Provider MD Thony SUBJECTIVE Pt presents today for follow up of left HSS. Pt has had previous treatment of 1st steroid injection, nsaids, stretching with relief. Pt states current pain on a 1-10 scale is a 2 Pt presents to day for follow up tx. Patient has similar complaints to the right heel and rates it up to a 0-1/10 Pt presents today for follow up of left achilles tendonitis . Pt has had previous treatment of medrol pack with positive improvement. Pt states current pain on a 1-10 scale is a 0-1 Pt presents to day for follow up tx. Pt awaits orthotics Allergies: Allergies Allergen Reactions Ibuprofen GI intolerance [...] Ankle ROM less than 10 degrees b/l. Minimal pain on palpation to left medial calcaneal tubercle negativepain on palpation to right medial calcaneal tubercle minimal pain on palpation left Achilles tendon with negative palpable Tie Siding XRAY: ASSESSMENT 1. Left Achilles tendinitis 2. Plantar fasciitis 3. Contracture of left ankle 4. Contracture of right ankle PLAN Patient to continue with oral anti - inflammatories as needed for pain and recommended OTC medications such as tylenol or Ibuprofen Patient is to continue with stretching excercizes daily with patient to continue with night stretching splint or manual stretching. Patient follow up in 2 weeks for orthotics Jareth Salazar DPM documented in this encounterCenterpoint Medical CenterVfrrmxloyw63-38-2025 History of Present illness Narrative* Jareth Salazar DPM - 01/10/2025 4:00 PM EDT Patient: Zoraida Owens : 1970 PCP: Noms Provider MD Thony SUBJECTIVE This is a 54 y.o. female that presents today for a CC of left heel pain . States pain with 1st steps in the morning and sharp in nature with treatments consisting of anti-inflammatories and shoe gearmodifications with negative relief and presents today for treatment. States the pain on a 1-10 scale a 8 Patient has similar complaints to the right heel and rates it up to a 5/10 Patient also states pain to the left posterior heel region in the near Achilles tendon and denies any trauma to area but states pain up to a 5/10 particularly with 1st steps in the morning has tried ibuprofen and different shoes with negative improved Allergies: Allergies Allergen Reactions Ibuprofen GI intolerance Past Medical History: History reviewed. No pertinent past medical history. Medications: No current outpatient medications on file. Social History: Social History Socioeconomic History Marital [...] Ankle ROM less than 10 degrees b/l. Positive pain on palpation to left medial calcaneal tubercle Positive pain on palpation to right medial calcaneal tubercle Positive pain on palpation left Achilles tendon with negative palpable Tie Siding XRAY: US: DIAGNOSTIC US REPORT - Verbal order today for imaging today The plantar arch and heel of the left foot were scanned today using a 12MHz linear probe in the transverse and sagittal planes, concerning the plantar fascia. Images were obtained. FINDINGS - US exam demonstrates hypo-echoic thickening of plantar fascia with its origin at the medial plantartuberosity of the calcaneus. The area of thickening and inflammation is greater than 4mm (norm = 4 mm). Notable calcaneal enthesophyte to plantar left calcaneus IMPRESSION - Left heel plantar fasciitis with heel spur ASSESSMENT 1. Left Achilles tendinitis 2. Heel spur, left 3. Plantar fasciitis 4. Contracture of left ankle 5. Contracture of right ankle PLAN Patient to continue with oral anti - inflammatories as needed for pain and recommended OTC medications such as tylenol or Ibuprofen Reviewed ultrasound today with patient Pt given steroid injection to left medial calcaneal tubercle under US guidance with visualization of injected fluid into area of concern per imaging. Injection of 1cc kenalog 10 and 2cc xylocaine 2% plain. Informed patient of risks and benefits of injection including non resolution of symptoms,steroid flare, tendon damage or rupture. Pt consents to proceed. 1st injection Dispensed night splint/dynamic customized AFO (L4397) to ambulatory patient today with patient education on usage and ABN signed for device if warranted. A verbal order for dispensing of device was given today. Device dispensed for ankle contracture/deformity and or plantar fascitis as noted per diagnosis.The patient may benefit functionally from this device. The AFO was assembled with straps adjusted for proper custom fitting by Jareth Salazar DPM and staff. The patient is ambulatory and may benefit functionally from this device. It may be used for the following conditions as noted per medical diagnosis. Pt presents today for casting of a removable foot inserts/orthotics today that was accomplished with scanning of feet and sent to orthotics lab.(L3020 right and L3020 left foot). Pt to have signed ABN for device if needed. It was explained to the patient of a break in period for the devices. The patient is ambulatory maybenefit functionally for this device. It may be used for the following conditions as noted per EMR. Prescription today for Medrol Jareth Salazar DPM documented [facility] [id number] Discharge instructions Additional Instructions Ice and elevate Wear Aircast for support for the next 3 to 5 days Tylenol or Naprosyn if needed for pain Keep your wounds clean apply Neosporin daily Observe for any redness, swelling, purulent drainage follow-up immediately if this occurs Your tetanus was updated in the emergency department [facility] Phone: Evaluation noteNo assessment information available [facility] Work Phone: evaluation note* Diagnosis Onset Date Resolution Status Left ankle sprain acute [facility] Work Phone: Evaluation note* Diagnosis Left Achilles tendinitis- Primary Heel spur, left Plantar fasciitis Plantar fascial fibromatosis Contracture of left ankle Contracture of right ankle documented in this encounter [facility]* Diagnosis Left Achilles tendinitis- Primary Plantar fasciitis Plantar fascial fibromatosis Contracture of left ankle Contracture of right ankle [facility] Diagnosis Left Achilles tendinitis- Primary Plantar fasciitis Plantar fascial fibromatosis Contracture of left ankle Contracture of right ankle [facility] Additional Instructions Rest Increase oral fluids Take the Tamiflu twice a day for 5 days May take jwge-ezw-ychdzfz Tylenol every 4 hours for fever chills body aches Take the Capmist DM every 6 hours for cough congestion runny nose Return to the ER for chest pain shortness of breath high your fever vomiting or any other [facility]Tr[facility] Work Phone: Hospital Discharge instructions Additional Instructions Take doxycycline as prescribed. If you test positive for an infection we will inform you of this and call in any additional medications which may be needed. Staying from sex until you have your partner have been tested and treated.[facility] Work Phone: Chief Complaint and Reason for Visit Chief Complaint rt ear pain,sore thr oat Chief Complaint rt ear pain,sore thr oat sore throat Chief Complaint chest pain dizzy Pain all over Chief Complaint CHEST PAIN abd pain, headache Chief Complaint abd pain, headache Urogenital/Stomach Pain Chief Complaint abd pain, headache Urogenital/Stomach Pain fall left leg injury Chief Complaint Urogenital/Stomach P ain fall left leg injury [facility] [place]KLE INJURY WX S99.912A - Unspecified injury of left ankle, initiReason for VisitLeft ankle sprain Chief Complaint Admit Date rt shoulder,abd pain July 13, 2024 7: 15pm Advance Directives No Advanced Directives Records Found Advance Directive Response Recorded Date/ Time Advance Directives No January 28, 2017 11:53am Advance Directive Response Recorded Date/ Time Advance Directives No January 28, 2017 10:53am Summary Purpose Family History No Family History Records FoundNo Family History Records Found Additional Source Comments Care Teams (unrecognized sec tion and content) Team Status: Active Member Role Status Dates Services [facility] Primary Care Provider Active Team Status: Inactive Member Role Status Dates Services [facility] Primary Care Provider Active Samuel Nino ProviderActive Team Status: Inactive Member Role Status Dates Services Family [facility] Primary Care Provider Active Samuel Ortega ProviderActive Team Status: Inactive Member Role Status Dates [facility] Primary Care Provider Active Lachelle Martinez ProviderActive Team Status: Inactive Member Role Status Dates Services [facility] Primary Care Provider Active Erin Raya ProviderActive Team Status: Inactive Member Role Status Dates Services Family [facility] Primary Care Provider Active Start: June 20, 2023 End: June 20, 2023Erin Raya ProviderActiveStart: June 20, 2023 End: June 20, 2023 Team Status: Inactive Member Role Status Dates Services [facility] Primary Care Provider Active Start: September 12, 2023 End: September 12, 2023Erin Mallory ProviderActiveStart: September 12, 2023 End: September 12, 2023 Team Status: Inactive Member Role Status Dates Services [facility] Primary Care Provider Active Start: October 09, 2023 End: October 09, 2023Samuel Bates ProviderActiveStart: October 09, 2023 End: October 09, 2023 Team Status: Inactive Member Role Status Dates Services [facility] Primary Care Provider Active Start: December 02, 2023 End: December 01Dmitriy Miranda ProviderActiveStart: December 02, 2023 End: December 02, 2023 Team Status: Inactive Member Role Status Dates Services [facility] Primary Care Provider Active Start: December 15, 2023 End: December 15, 2023ThCindy Townsend ProviderActiveStart: December 15, 2023 End: December 15, 2023 Team Status: Active Member Role Status Dates Felipe Gray MD Attending Provider Active Star t: December 15, 2023 [facility] ProviderActiveStart: December 15, 2023 Team Status: Inactive Member Role Status Dates Felipe Gray MD Attending Provider Active Star t: December 15, 2023 End: December 15, 2023Services [facility] Care ProviderActiveStart: December 15, 2023 End: December 15, 2023 Team Status: Inactive Member Role Status Dates Services [facility] Primary Care Provider Active Start: July 13, 2024 End: July 13COREY Avalos-Paulette ProviderActiveStart: July 13, 2024 End: July 13, 2024Team MemberRelationshipSpecialtyStart DateEnd Date Unallocated, Noms Dg, [facility] [place] [address] PCP - GeneralFamily Medicine05/01/23Team MemberRelationshipSpecialtyStart DateEnd Date Unallocated, Monica Conte MD [address] [place] [address] PCP - [facility]05/01/23Team MemberRelationshipSpecialtyStart DateEnd Date Unallocated, Monica Conte MD [facility] [place] [address] PCP - [facility]05/01/23Team MemberRelationshipSpecialtyStart DateEnd Date Unallocated, Monica Conte MD [facility] [place] [address] [facility] - [facility]05/01/23Team MemberRelationshipSpecialtyStart DateEnd Date Unallocated, Monica Conte MD [address] [place], [place] [address] [address] [facility] - [facility]05/01/23 Goals (unrecognized section and content) Goals may be documented in a n alternate sectionGoals may be documented in an alternate sectionGoals may be documented in an alternate sectionGoals may be documented in an alternate sectionGoals may be documented in an alternate sectionGoals may be documented in an alternate sectionGoals may be documented in an alternate sectionGoals may be documented in an alternate sectionGoals may be documented in an alternate section INFORMATION SOURCE (unrecogn ized section and content) DATE CREATED AUTHOR 07/16/2024 [facility] DATE CREATED AUTHOR AUTHOR'S ORGANERNIE ATION 02/13/2025 [facility] EPIC Reason for Visit (unrecogniz ed section and content) ReasonCommentsFoot PainReasonCommentsFollow-upLt pf checkReasonCommentsConsent Or InstructionsOrthotic turkey picker FOR RECORDS PERTAINING TO PATIENTS WHO ARE OR HAVE BEEN ENROLLED IN A CHEMICAL DEPENDENCY/SUBSTANCEABUSE PROGRAM, SOME INFORMATION MAY BE OMITTED. This clinical summary was aggregated from multiple sources. Caution should be exercised in using it in the provision of clinical care. This summary normalizes information from multiple sources, and as a consequence, information in this document may materially change the coding, format and clinical context of patient data. In addition, data may be omitted in some cases. CLINICAL DECISIONS SHOULD BE BASED ON THE PRIMARY CLINICAL RECORDS. [facility]. provides no warranty or guarantee of the accuracy or completeness of information in this document.
--- OUTSIDE RECORDS SUMMARY | 2025-03-15 09:12 | XMS_ITS | Clinical Summary ---
Author Organization [facility] tem Address [id number] [address] [place] [address] Care Team Providers Care Chair Finisher Name Role Phone No Pcp, No Pcp Primary Care Provider Unavailabl e Allergies No known active allergies Medications No known medications Social History Tobacco UseTypesPacks/DayYears UsedDateSmoking Tobacco: Every DaySmokeless Tobacco: NeverChildcareAnswerDate GfrwtoqtNfyrzhhidVnroeeu14/13/2019Employment AnswerDate InjzwfuuRtsnpkwpawYqmzpgt09/13/2019Purpose - LifeAnswerDate Recorded Purpose and direction in fydbQunbrwk10/11/2021CommentsUnknownSex and Gender InformationValueDate RecordedSex Assigned at BirthNot on fileLegal Sex Qrnuyd9301/27/2017 6:56 AM EDTGender IdentityNot on fileSexual OrientationNot on file Last Filed Vital Signs Vital SignReadingTime TakenCommentsBlood Epitwdlo198/7701/27/2017 7:03 AM EDT Alxyi994401/27/2017 7:03 AM WTKSvymqbuyaxz48.9 ??C (98.5 ??F)01/27/2017 7:03 AM EDTRespiratory Yzxd1851 7:03 AM EDTOxygen Mqnoxpddoa83%01/27/2017 7:03 AM EDTInhaled Oxygen Concentration--Iwoyao62.9 kg (143 lb)01/27/2017 7:03 AM EDT Intcpp406.4 cm (5')01/27/2017 7:03 AM EDTBody Mass Index27.9301/27/2017 7:03 AM EDT Plan of Treatment Not on file Medical Devices Not on file Insurance * Guarantor: Thaddeus Owens TypeRelation to PatientDate of BirthPhone Billing AddressPersonal/NxrhmmFmvv67/ [address] [place] [address] Care Teams Team MemberRelationshipSpecialtyStart DateEnd Date [place] P[place], [place] [address] [facility] Ufroamtl82/9/17
--- OUTSIDE RECORDS SUMMARY | 2025-03-15 09:12 | XMS_ITS | Encounter Summary ---
Author Organization [facility] Address [address] [id number] Care Team Providers Care Career And Technology Education Teacher Name Role Phone Unallocated, Noms Provider Primary Care Provi ac Encounter Details DateTypeDepartmentCare Team (Latest Contact Info)Rigqqetiunw20/17/2025amboo flowsheet [facility] [address] [place] [address] Jareth Salazar DPM [address] [address] Social History Tobacco UseTypesPacks/DayYears UsedDateSmoking Tobacco: Every DayCigarettes CommentsUnknownSex and Gender InformationValueDate RecordedSex Assigned at BirthNot on fileLegal HraGbenhs32/11/2024 10:43 AM ESTGender IdentityNot on fileSexual OrientationNot on filedocumented as of this encounter Plan of Treatment DateTypeDepartmentCare Team (Latest Contact Info)Qlyjcxumdbk13/08/2025 4:30 PM ESTOffice Visit [facility] [address] [place] [address] Jareth Salazar DPM [address] [address] documented as of this encounter Visit Diagnoses Not on filedocumented in this encounter Care Teams Team MemberRelationshipSpecialtyStart DateEnd Date Unallocated, [place] [address] PCP - GeneralFamily Medicine05/01/23documented as of this encounter
[2025-03-15 09:13] LABS: Anion Gap 11.4; Blood Urea Nitrogen 15.0 mg/dL (7.0-18.0); Calcium 8.8 mg/dL (8.5-10.1); Carbon Dioxide 28.5 mmol/L (21.0-32.0); Chloride 108 mmol/L (98-107); Estimated GFR (African America >60 (>=60 mL/min/1.73m^2); Estimated GFR (Non-African Ame >60 (>=60 mL/min/1.73m^2); Glucose 93 mg/dL (74-106); Potassium 3.9 mmol/L (3.5-5.1); Sodium 144 mmol/L (136-145)
[2025-03-15] MEDS: NITROGLYCERIN 0.4 MG BOTTLE SL (09:22)
== END 2025-03-15 10:38 | disposition home or self-care (01) ==
PROVIDERS: Emergency Provider Emergency Medicine
DX: R07.9 Chest pain, unspecified (principal); F17.200 Nicotine dependence, unspecified, uncomplicated
CPT/HCPCS: 36415; 71045; 80048; 84484; 85025; 85378; 93005; 99285